=== PATIENT | female | born 1935 | race Caucasian/White ===

== ENCOUNTER 2017-02-03 15:51 | Observation (INO) ==
[2017-02-03 16:06] LABS: Basophils # 0.1 K/mcL (0.0-0.2); Basophils % 1.7 %; Eosinophils # 0.2 K/mcL (0.0-0.6); Eosinophils % 2.9 %; Hematocrit 44.7 % (35.3-44.9); Immature Granulocytes % 0.2 % (0-4); Lymphocytes # 1.4 K/mcL (0.6-4.6); Lymphocytes % 27.9 %; Mean Corpuscular HGB Conc 31.3 g/dL (31.6-35.5); Mean Corpuscular Hemoglobin 29.4 pg (28.0-33.3); Mean Corpuscular Volume 93.9 fL (83.0-100.0); Monocytes # 0.5 K/mcL (0.0-1.3); Monocytes % 10.1 %; Platelet Count 235 K/mcL (140-400); Red Blood Count 4.76 M/mcL (3.82-4.97); Red Cell Distribution Width 14.2 % (11.5-14.5); Segmented Neutrophils % 57.2 %
[2017-02-03 16:13] LABS: Prothrombin Time 11.2 Seconds (9.4-12.1)
[2017-02-03 16:16] LABS: Activated Partial Thrombo Time 30.9 Seconds (26.0-36.0)
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
[2017-02-03 16:19] LABS: Calcium 9.4 mg/dL (8.6-10.8); Potassium 4.7 mEq/L (3.5-4.5)
[2017-02-03] MEDS ORDERED: *HR* Labetalol 20 MG/4 ML SYRINGE IVP ONE (16:54)
[2017-02-03] MEDS ORDERED: Aspirin 81 MG TAB.CHEW PO ONE (17:26)
[2017-02-03] MEDS ORDERED: Ondansetron 4 MG/2 ML VIAL IVP PRN (20:02)
[2017-02-03] MEDS ORDERED: Naloxone 0.4 MG/ML INJ IVP PRN (20:02)
[2017-02-03] MEDS ORDERED: *HR* Metoprolol 5 MG/5 ML VIAL IVP PRN (20:10)
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
[2017-02-03] MEDS: 0.9 % Sodium Chloride 1,000 ML IVC SCH (23:34)
[2017-02-04] MEDS: *HR* Morphine 2 MG/ML SYRINGE IVP PRN (02:50)
[2017-02-04 04:43] LABS: Basophils # 0.1 K/mcL (0.0-0.2); Basophils % 1.5 %; Eosinophils # 0.2 K/mcL (0.0-0.6); Eosinophils % 4.4 %; Hematocrit 38.8 % (35.3-44.9); Immature Granulocytes % 0.2 % (0-4); Lymphocytes # 1.5 K/mcL (0.6-4.6); Lymphocytes % 31.7 %; Mean Corpuscular HGB Conc 31.2 g/dL (31.6-35.5); Mean Corpuscular Hemoglobin 29.4 pg (28.0-33.3); Mean Corpuscular Volume 94.2 fL (83.0-100.0); Mean Platelet Volume 10.3 fL (9.4-12.4); Monocytes # 0.5 K/mcL (0.0-1.3); Monocytes % 9.7 %; Neutrophils # 2.5 K/mcL (1.6-8.9); Platelet Count 195 K/mcL (140-400); Red Blood Count 4.12 M/mcL (3.82-4.97); Red Cell Distribution Width 14.2 % (11.5-14.5); Segmented Neutrophils % 52.5 %
[2017-02-04 04:46] LABS: Hemoglobin 12.1 g/dL (11.5-15.4)
[2017-02-04 05:00] LABS: Calcium 8.9 mg/dL (8.6-10.8); Chol/HDL Ratio 3.9 (0-4.9); Magnesium 1.9 mg/dL (1.6-2.6); Potassium 4.1 mEq/L (3.5-4.5)
[2017-02-04] MEDS: *HR* Heparin 5,000 UNIT/ML VIAL SQ SCH ×2 (05:24→20:37)
--- NOTE | 2017-02-04 09:42 | Neurosurgical History&Physical ---
Date of Encounter: 02/04/17 Time of Encounter: 09:37 Assessment and Plan (1) Cerebrovascular accident Current visit: Yes Status: Acute Likely secondary to multiple medical issues, including edical incompliance - patient was on Xarelto, but has not been taking it. Pt has Afib, and is at higher risk for strokes in the future if she does not take Xarelto. Pt also has hypercholesterolomia and needs to be on statin. Cholesterol levels are high. Her carotid imaging shows plaques in ICA bilaterally. although EF is normal, she has Afib. Qualifiers: CVA mechanism: unspecified Qualified Code(s): I63.9 - Cerebral infarction, unspecified (2) Dysarthria Current visit: Yes Status: Acute resolved (3) Confusion Current visit: Yes Status: Acute resolved (4) Dysphagia Current visit: Yes Status: Acute seems to have resolved, but need Speech evaluation. Qualifiers: Qualified Code(s): R13.10 - Dysphagia, unspecified History of Present Illness Chief complaint: stroke versus TIA HPI: Ms. Ireland is a 81 year old female with prior history of TIAs, Atrial fibrillation, who had sudden onset speech difficulties and right-sided weakness when she was driving. The daughter who was with her, called 911 and was taken to the [place] [facility]. Telestroke with [facility] was performed - and tPA was advised. Pt and family did not want the tPA and was admited to the floor for observation. Patient today tells us that she has not been taking her home medications - she was on Xarelto for Afib. She is tired of taking medications at home, she says. She knew that she probably had a stroke. She states that she was confused, but not out of breath, and that she was weak on the right side. No bowel/bladder issues at that time. Today, she states that she is back to her own self and wants to know when he can go home. She is NPO for now, but she is asking when she can eat. NIHSS 2. Past Med Surg Social Fam HX - Past Medical History Medical history: arthritis, atrial fibrillation, GERD, hypertension, peripheral artery disease, TIA Psychiatric history: depression - Past Surgical History Surgical History: vascular surgery - Social History Smoking Status: Current every day smoker Smokeless Tobacco Status: No Alcohol use: none Drug use: none Current living situation: With Family Activity Level: Independent ambulation Recent Out of Country Travel Within the Last 8 Weeks: No Exposure or Possible Exposure to Illness During Travel: No - Family History Daughter Hx Family Medical Disorders: Yes (PVD/PAD) Medications and Allergies Atorvastatin Calcium [Lipitor] 80 mg PO HS 04/18/16 [History] Lisinopril [Zestril] 40 mg PO DAILY 04/18/16 [History] Metoprolol XL (24 HR) Succ [Toprol XL] 50 mg PO DAILY 04/18/16 [History] Omeprazole [PriLOSEC] 20 mg PO DAILY 04/18/16 [History] Oxycodone HCl/Acetaminophen [Percocet 5-325 mg Tablet] 1 tab PO Q8H PRN [History] Rivaroxaban [Xarelto] 20 mg PO DAILY 04/18/16 [History] Ergocalciferol (VITAMIN D2) [Vitamin D2] 50,000 unit PO QWEEK 02/01/17 [History] Ferrous Sulfate [Ferrous Sulfate] 325 mg PO BID 02/03/17 [History] Gabapentin [Neurontin] 300 mg PO TID 02/03/17 [History] Allergies Erythromycin Base Allergy (Verified 02/03/17 15:53) Rash All Systems: A 10-system review of systems was performed and is negative for pertinent findings except as documented above in the HPI. - Neurological Neurological ROS: abnormal speech (resolved), focal weakness (resolved) Physical Examination - Vital Signs Vital Signs: Initial Vital Signs Temp Pulse Resp BP Pulse Ox 0 F L 102 0 0/0 97 02/03/17 15:54 02/03/17 15:54 02/03/17 15:54 02/03/17 15:54 02/03/17 15:54 Vital Signs - 24 hr 02/03/17 15:54 02/03/17 16:11 02/03/17 16:26 Temperature 0 F L Pulse Rate 102 82 78 Respiratory Rate 16 14 98 Blood Pressure 214/103 185/117 190/101 O2 Sat by Pulse Oximetry 97 99 02/03/17 16:47 02/03/17 16:57 02/03/17 17:02 Temperature Pulse Rate 80 81 98 Respiratory Rate 14 14 14 Blood Pressure 187/139 173/139 195/114 O2 Sat by Pulse Oximetry 99 97 96 02/03/17 17:10 02/03/17 17:16 02/03/17 17:26 Temperature Pulse Rate 76 75 71 Respiratory Rate 14 16 16 Blood Pressure 190/77 144/117 163/128 O2 Sat by Pulse Oximetry 97 97 98 02/03/17 17:35 02/03/17 17:56 02/03/17 18:11 Temperature Pulse Rate 74 75 76 Respiratory Rate 14 14 14 Blood Pressure 171/109 181/95 165/96 O2 Sat by Pulse Oximetry 97 98 02/03/17 18:35 02/03/17 20:10 02/03/17 21:00 Temperature 97.8 F Pulse Rate 83 Respiratory Rate 16 16 Blood Pressure 155/99 173/110 O2 Sat by Pulse Oximetry 95 95 02/04/17 00:05 02/04/17 04:52 02/04/17 04:58 Temperature 98.3 F 97.7 F Pulse Rate 85 80 63 Respiratory Rate 18 18 12 Blood Pressure 182/104 188/98 188/98 O2 Sat by Pulse Oximetry 97 98 02/04/17 07:19 Temperature 97.7 F Pulse Rate 80 Respiratory Rate 14 Blood Pressure 172/92 O2 Sat by Pulse Oximetry 97 - Constitutional General appearance: comfortable - Neurologic Sensorimotor examination: hemiparesis (mild right hemiparesis) Detailed sensory examination: other (decreased distally for light touch and vibration) Reflexes: Biceps: 1+ (bilaterally), Triceps: 1+ (bilaterally), Brachioradialis: 1+ (bilaterally), Patella: 1+ (bilaterally), Achilles: 2+ (asymmetrically on the right, up going toe on the right.) Mental Status Examination: awake, alert, oriented to person, oriented to place, oriented to time, follows commands appropriately, answers questions appropriately, no agnosia, no aphasia, no aproxia, lucid Cranial nerve examination: PERRL, EOMI, visual baez intact, corneal reflexes brisk symmetrically, sensory to face intact, mastication intact, no facial asymmetry is present, no dysarthria, hearing is intact symmetrically, soft palate elevates bilaterally upon phonation, gag reflex intact, flexes SCM and trapezius muscles symmetrically with full power, tongue protrudes midline, no atrophy or facial fasiculations present Cerebellar examination: no dysmetria, performs finger to nose and heel to arias symmetrically without ataxia (but mildly clumsy on the right), no difficulty with rapid alternating movements Results - Laboratory Findings CBC and BMP: 02/04/17 04:17 02/04/17 04:17 Abnormal lab findings: Abnormal lab results MCHC 31.2 g/dL (31.6-35.5) L 02/04/17 04:17 Chloride 111 mEq/L (98-109) H 02/04/17 04:17 BUN 30 mg/dL (7-20) H 02/04/17 04:17 Creatinine 1.37 mg/dL (0.57-1.11) H 02/04/17 04:17 Est GFR ( Amer) 45 (> 60) L 02/04/17 04:17 Est GFR (Non-Af Amer) 37 (> 60) L 02/04/17 04:17 POC Glucose 99 (58-89) H 02/03/17 15:55 Cholesterol 206 mg/dL (< 200) H 02/04/17 04:17 LDL Cholesterol, Calc 137 mg/dL (0-99) H 02/04/17 04:17 - Diagnostic Findings Additional findings: Head CT 02/03/17 15:56 IMPRESSION: No acute intracranial abnormality. MRI with diffusion-weighted imaging is more sensitive for the evaluation of acute/hyperacute stroke. Chronic white matter microangiopathic ischemic changes and age-related cerebral atrophy. Critical results were called by Dr. Juliocesar Seth MD to Ildefonos Hernandez on 02/03/2017 at 16:12. D/ / Juliocesar Seth MD / Juliocesar Seth MD Interpreting Provider: Juliocesar Seth MD Brain MRI 02/03/17 20:08 IMPRESSION: 1. Small volume acute ischemic infarct in the posterior left frontal periventricular white matter. 2. No intracranial hemorrhage or mass effect. 3. Diffuse parenchymal volume loss with moderate chronic white matter microvascular ischemic changes. 4. Findings of right paranasal sinusitis in a pattern suggesting ostiomeatal unit obstruction. D/ / Juice Eaton MD / Juice Eaton MD Interpreting Provider: Juice Eaton MD
--- NOTE | 2017-02-04 12:42 | Carotid Imaging Report ---
Carotid Duplex Patient Name:Alba Ireland Order Number:[id number] Procedure Date:02/04/2017 Date:1935ge:81 yrs Gender:Female Rt.BP:172 / 92 mmHgHeart Rate: Location:[facility] Room #: 2ne30 Cinder Pit Worker:yLndon Granda, RDIVANNA Referring MD:Jin Chester MD Reading MD:Bolivar Smith MD , FACS Primary Indications:Occlusion and stenosis of carotid artery without mention of cerebral infarction Risk Factors Yes/No Hypertension Yes Smoking Current Yes Impressions: Findings: Bilateral carotid system have nonstenotic plaque. Findings Carotid Duplex: Right: The right proximal common carotid artery has a PSV of 61 cm/s and a EDV of 11 cm/s. There is irregular heterogeneous plaque. The right mid common carotid artery has a PSV of 62 cm/s and a EDV of 23 cm/s. There is irregular heterogeneous plaque. The right distal common carotid artery has a PSV of 52 cm/s and a EDV of 14 cm/s. There is irregular heterogeneous plaque. The right bifurcation has a PSV of 57 cm/s and a EDV of 20 cm/s. There is irregular heterogeneous plaque. The right proximal internal carotid artery has a PSV of 84 cm/s and a EDV of 21 cm/s. There is irregular heterogeneous plaque. The right mid internal carotid artery has a PSV of 80 cm/s and a EDV of 22 cm/s. There is irregular heterogeneous plaque. The right distal internal carotid artery has a PSV of 85 cm/s and a EDV of 24 cm/s. There is irregular heterogeneous plaque. The right eca has a PSV of 205 cm/s and a EDV of 25 cm/s. The right vertebral artery has a PSV of 52 cm/s and a EDV of 14 cm/s. There is irregular heterogeneous plaque. Left: The left proximal common carotid artery has a PSV of 66 cm/s and a EDV of 20 cm/s. There is irregular heterogeneous plaque. The left mid common carotid artery has a PSV of 75 cm/s and a EDV of 22 cm/s. There is irregular heterogeneous plaque. The left distal common carotid artery has a PSV of 82 cm/s and a EDV of 28 cm/s. There is irregular heterogeneous plaque. The left bifurcation has a PSV of 78 cm/s and a EDV of 24 cm/s. There is irregular heterogeneous plaque. The left proximal internal carotid artery has a PSV of 85 cm/s and a EDV of 23 cm/s. There is irregular heterogeneous plaque. The left mid internal carotid artery has a PSV of 92 cm/s and a EDV of 31 cm/s. There is irregular heterogeneous plaque. The left distal internal carotid artery has a PSV of 91 cm/s and a EDV of 24 cm/s. There is irregular heterogeneous plaque. The left eca has turbulent flow with plaque with a PSV of 341 cm/s and a EDV of 46 cm/s. The left vertebral artery was not well visualized. Prior Study: No prior study available for comparison. Carotid Results Right PSV EDV Assessment Proximal CCA 61 11 Non Stenotic Plaque Mid CCA 62 23 Non Stenotic Plaque Distal CCA 52 14 Non Stenotic Plaque Bifurcation 57 20 Non Stenotic Plaque Proximal ICA 84 21 Non Stenotic Plaque Mid ICA 80 22 Non Stenotic Plaque Distal ICA 85 24 Non Stenotic Plaque ECA 205 25 Normal Vertebral Artery 52 14 Non Stenotic Plaque Left PSV EDV Assessment Proximal CCA 66 20 Non Stenotic Plaque Mid CCA 75 22 Non Stenotic Plaque Distal CCA 82 28 Non Stenotic Plaque Bifurcation 78 24 Non Stenotic Plaque Proximal ICA 85 23 Non Stenotic Plaque Mid ICA 92 31 Non Stenotic Plaque Distal ICA 91 24 Non Stenotic Plaque ECA 341 46 Turbulant Flow Ratio's Right ICA/CCA Ratio: 1.37 ICA/CCA Values: 85/62 Left ICA/CCA Ratio: 1.23 ICA/CCA Values: 92/75 Updated by Bolivar Smith MD, FACS on 02/04/2017 12:37:00 PM Bolivar Smith MD electronically signed on 02/04/2017 12:37:26 PM with status of Final
--- NOTE | 2017-02-04 13:08 | Internal Med Progress Note ---
Date of Encounter: 02/04/17 Time of Encounter: 13:05 - Assessment and plan (1) Cerebrovascular accident Current Visit: Yes Status: Acute Assessment and plan: the dysarthria has resolved, she still has some weakness of rt. arm MRI shows small volume infarct possible 2/2 atrial fib non compliant with meds and not taking xarelto. neurology recoomendations appreciated. bedside PT/OT. carotid doppler shows b/l plaques with no stenosis. follow ECHO results. continue to hold BP meds for permissive HTN, prn if SBP>210 continue asa, statin and AC with xarelto. Qualifiers: CVA mechanism: unspecified Qualified Code(s): I63.9 - Cerebral infarction, unspecified (2) Hypertension Current Visit: Yes Status: Chronic Assessment and plan: will allow permissive HTN for now. Qualifiers: Hypertension type: essential hypertension Qualified Code(s): I10 - Essential (primary) hypertension (3) Atrial fibrillation Current Visit: Yes Status: Chronic Assessment and plan: rate controlled now. will restart on AC before dc. Qualifiers: Atrial fibrillation type: chronic Qualified Code(s): I48.2 - Chronic atrial fibrillation - Time Spent With Patient 25 - 35 minutes - Subjective Interval history: seen at the bedside, presented with acute CVA with right sided weakness, candidate for TPA however seh refused. still has some weakness of rt. arm, however symptoms have improved. no dysarthria, no dysphagia, MRI shows a small infarct, neurology on board. - Constitutional Vitals: Temp Pulse Resp BP Pulse Ox 97.6 F 104 18 126/80 18 02/04/17 11:29 02/04/17 11:29 02/04/17 11:29 02/04/17 11:29 02/04/17 11:29 General appearance: Present: cooperative, A&O X 3, pleasant, no acute distress Exam: neck- supple chest- b/l clear , no added sounds CVS-s1 and s2, no mr/g/ abd-soft, non tender, bs are present ext- no edema neuro- alert and awake, no dysphagia or dysarthria, weakness right arm 3/5. Internal Medicine: Result - Labs CBC & Chem 7: 02/04/17 04:17 02/04/17 04:17 Labs: Short CBC 02/04/17 Range/Units 04:17 WBC 4.8 (4.3-11.1) K/mcL Hgb 12.1 D (11.5-15.4) g/dL Hct 38.8 (35.3-44.9) % Plt Count 195 (140-400) K/mcL Neutrophils # 2.5 (1.6-8.9) K/mcL BMP 02/04/17 04:17 Sodium 142 Potassium 4.1 Chloride 111 H Carbon Dioxide 21 BUN 30 H Creatinine 1.37 H Glucose 75 Calcium 8.9 - ABG Interpretation ABG results: PT/INR, D-dimer PT 11.2 Seconds (9.4-12.1) 02/03/17 15:56 - Impressions Impressions Brain MRI 02/03/17 20:08 IMPRESSION: 1. Small volume acute ischemic infarct in the posterior left frontal periventricular white matter. 2. No intracranial hemorrhage or mass effect. 3. Diffuse parenchymal volume loss with moderate chronic white matter microvascular ischemic changes. 4. Findings of right paranasal sinusitis in a pattern suggesting ostiomeatal unit obstruction. D/ / Juice Eaton MD / Juice Eaton MD Interpreting Provider: Juice Eaton MD Consult Discharge Plan - Plan Referrals: Patsy Caldera MD [Primary Care Provider] -
[2017-02-04] MEDS: 0.9 % Sodium Chloride 1,000 ML IVC SCH (13:30)
[2017-02-04] MEDS: Gabapentin 300 MG CAPSULE PO SCH ×2 (16:10→20:36)
--- NOTE | 2017-02-04 17:39 | ECHO - Doppler Report ---
Echo with Saline Contrast Name: Alba Ireland Date of Study: 02/04/2017 Date: 1935 Ht: 60.0 in Medical Record#: [id number] Age: 81 Wt: 99.0 lb Gender: Female BSA: 1.38 Order #: [id number] Location: [facility] Room #: 2ne30 Reading Physician: Dashawn Espinosa DO, FACEVAN Rodriguez Helicopter Crew Chief: Lyndon Granda RDCS Ordering Physician: Jin Chester MD Primary Physician: Indications: Cerebrovascular Accident Impressions: LVEF 60-65%. Normal LV chamber size, wall thickness and function. Indeterminate diastolic function. Normal right ventricular structure and function. No evidence of PFO with agitated saline contrast. Mild mitral regurgitation. Mild tricuspid regurgitation. Severe pulmonary hypertension. Estimated RVSP is 67 mmHg. Left Ventricular Wall Motion: Rest Echo Findings All wall segments showed normal motion. Findings: Study Quality * Technically adequate exam. ECG Findings * Atrial fibrillation. Left Ventricle * LVEF 60-65%. * Normal LV chamber size, wall thickness and function. * Indeterminate diastolic function. Right Ventricle * Normal right ventricular structure and function. Left Atrium * Mild to moderately dilated left atrium. Right Atrium * Mild to moderately dilated right atrium. Interatrial Septum * No evidence of PFO with agitated saline contrast. Aortic Valve * Trileaflet aortic valve. * Mildly sclerotic aortic valve leaflets. * No aortic regurgitation. * No aortic stenosis. Mitral Valve * Normal mitral valve structure. * Mild mitral regurgitation. * No mitral stenosis. Tricuspid Valve * Normal tricuspid valve structure. * Mild tricuspid regurgitation. * Severe pulmonary hypertension. * Estimated RVSP is 67 mmHg. * Estimated RA pressure is 5 mmHg. Pulmonic Valve * Normal pulmonic valve structure. * Mild pulmonic regurgitation. Aorta * Normally sized aortic root. Pericardium * There is a trivial pericardial effusion present. IVC * Normal IVC dimensions and inspiratory collapse. Pulmonary Artery * Normal visualized portions of the main pulmonary artery. History Hypertension Hypercholesteremia Family History of CAD History of CAD/PTCA 08/12/14 a Previous Echo was performed. Contrast: Agitated saline 2 ml. Measurements: BP: 172/ 92 2D Normal Values RVIDd: 2.90 cm <2.7 cm IVSd: 1.00 cm 0.6 - 1.0 cm LVIDd: 3.50 cm 3.7 - 5.6 cm LVPWd: 1.10 cm 0.6 - 1.1 cm LVIDs: 2.40 cm 1.5 - 3.6 cm AO: 2.40 cm < 4.0 cm LA: 3.20 cm 2.0 - 4.0cm %FS: 31.40 cm >25 % LA volume: 54 Mitral Valve Peak E:.92 m/sec Peak E' Lat Andres:7.51 cm/s Peak E' Med Andres:5.29 cm/s E/E' Lat Ratio:12.3 E/E' Med Ratio:17.4 Tricuspid Valve TV Regurg Peak Grad: 61.00mmHg TV Regurg Peak Andres: 3.92m/sec Updated by Dashawn Espinosa DO, MIGUEL, EVAN, JORGE LUIS on 02/04/2017 5:34:01 PM electronically signed on 02/04/2017 5:35:05 PM with status of Final Wall Motion Dow: 1=Normal, 2=Hypokinesis, 3=Akinesis, 4=Dyskinesis, 5=Aneurysmal, 6=Hyperkinetic, X=Not Visualized (Blank)=Missing
[2017-02-05] MEDS: 0.9 % Sodium Chloride 1,000 ML IVC SCH ×2 (03:12→22:24)
[2017-02-05] MEDS: Gabapentin 300 MG CAPSULE PO SCH ×3 (09:55→20:53)
[2017-02-05] MEDS: *HR* Heparin 5,000 UNIT/ML VIAL SQ SCH ×2 (09:55→15:54)
--- NOTE | 2017-02-05 10:43 | Internal Med Progress Note ---
Date of Encounter: 02/05/17 Time of Encounter: 10:41 - Assessment and plan (1) Cerebrovascular accident Current Visit: Yes Status: Acute Assessment and plan: the dysarthria has resolved, she still has some weakness of rt. arm MRI shows small volume infarct possible 2/2 atrial fib non compliant with meds and not taking xarelto. neurology recoomendations appreciated. bedside PT/OT. carotid doppler shows b/l plaques with no stenosis. Echo results reviewed, no evidence of PFO, nomral LVEF. continue to hold BP meds for permissive HTN, prn if SBP>210 continue asa, statin and AC with xarelto. Qualifiers: CVA mechanism: unspecified Qualified Code(s): I63.9 - Cerebral infarction, unspecified (2) Hypertension Current Visit: Yes Status: Chronic Assessment and plan: will allow permissive HTN for now. Qualifiers: Hypertension type: essential hypertension Qualified Code(s): I10 - Essential (primary) hypertension (3) Atrial fibrillation Current Visit: Yes Status: Chronic Assessment and plan: rate controlled now. will restart on AC before dc. Qualifiers: Atrial fibrillation type: chronic Qualified Code(s): I48.2 - Chronic atrial fibrillation - Subjective Interval history: seen at the bedside, presented with acute CVA with right sided weakness, candidate for TPA however seh refused. weakness of rt. arm improving, speech has improved no dysarthria, no dysphagia, MRI shows a small infarct, neurology on board. will need inpt. reahb possible at dc. - Constitutional Vitals: Temp Pulse Resp BP Pulse Ox 97.7 F 85 18 188/90 95 02/05/17 07:10 02/05/17 07:10 02/05/17 07:10 02/05/17 07:10 02/05/17 07:10 General appearance: Present: cooperative, A&O X 3, pleasant, no acute distress Exam: neck- supple chest- b/l clear , no added sounds CVS-s1 and s2, no mr/g/ abd-soft, non tender, bs are present ext- no edema neuro- alert and awake, no dysphagia or dysarthria, weakness right arm 3/5. Internal Medicine: Result - Labs CBC & Chem 7: 02/04/17 04:17 02/04/17 04:17 - ABG Interpretation ABG results: PT/INR, D-dimer PT 11.2 Seconds (9.4-12.1) 02/03/17 15:56 Consult Discharge Plan - Plan Referrals: Patsy Caldera MD [Primary Care Provider] -
[2017-02-05 10:59] LABS: Basophils # 0.1 K/mcL (0.0-0.2); Basophils % 1.1 %; Eosinophils # 0.2 K/mcL (0.0-0.6); Eosinophils % 3.8 %; Hematocrit 39.3 % (35.3-44.9); Hemoglobin 12.3 g/dL (11.5-15.4); Immature Granulocytes % 0.4 % (0-4); Immature Platelets 4.8 % (1.1-6.1); Lymphocytes # 1.2 K/mcL (0.6-4.6); Mean Corpuscular HGB Conc 31.3 g/dL (31.6-35.5); Mean Corpuscular Hemoglobin 29.6 pg (28.0-33.3); Mean Corpuscular Volume 94.5 fL (83.0-100.0); Mean Platelet Volume 10.3 fL (9.4-12.4); Monocytes # 0.5 K/mcL (0.0-1.3); Monocytes % 10.3 %; Neutrophils # 2.6 K/mcL (1.6-8.9); Platelet Count 199 K/mcL (140-400); Red Blood Count 4.16 M/mcL (3.82-4.97); Red Cell Distribution Width 14.3 % (11.5-14.5); Segmented Neutrophils % 57.4 %
[2017-02-05 11:12] LABS: Calcium 8.8 mg/dL (8.6-10.8); Potassium 4.3 mEq/L (3.5-4.5)
--- NOTE | 2017-02-05 12:29 | Electrocardiograph Report ---
[address] [address] Test Date: 2017-02-03 Pat Name: Alba Ireland Department: 102 Room: [facility] Gender: F [employer]: : 1935 Requested By: Jin Chester Order Number: [id number] Reading MD: Joel Goems Measurements Intervals [facility] Rate: 84 P: HI: 0 QRS: -16 QRSD: 70 T: 19 QT: 368 QTc: 408 Interpretive Statements ATRIAL FIBRILLATION Electronically Signed On 02-05-2017 12:28:13 EDT by Joel Gomes
[2017-02-05] MEDS: *HR* Morphine 2 MG/ML SYRINGE IVP PRN (15:54)
[2017-02-05] MEDS ORDERED: *HR* Metoprolol 5 MG/5 ML VIAL IVP PRN (20:20)
[2017-02-06] MEDS: *HR* Heparin 5,000 UNIT/ML VIAL SQ SCH ×2 (05:32→15:10)
[2017-02-06] MEDS: Gabapentin 300 MG CAPSULE PO SCH ×3 (09:42→21:21)
--- NOTE | 2017-02-06 14:11 | Internal Med Progress Note ---
Date of Encounter: 02/06/17 Time of Encounter: 14:09 - Assessment and plan (1) Cerebrovascular accident Current Visit: Yes Status: Acute Assessment and plan: the dysarthria has resolved, she still has some weakness of rt. arm MRI shows small volume infarct possible 2/2 atrial fib non compliant with meds and not taking xarelto. neurology recoomendations appreciated. bedside PT/OT. carotid doppler shows b/l plaques with no stenosis. Echo results reviewed, no evidence of PFO, nomral LVEF. will restrat her BP meds. continue asa, statin and AC with xarelto. await soical work for placement to inpatient rehab Qualifiers: CVA mechanism: unspecified Qualified Code(s): I63.9 - Cerebral infarction, unspecified (2) Hypertension Current Visit: Yes Status: Chronic Assessment and plan: will gradually start anti htn meds. Qualifiers: Hypertension type: essential hypertension Qualified Code(s): I10 - Essential (primary) hypertension (3) Atrial fibrillation Current Visit: Yes Status: Chronic Assessment and plan: rate controlled now. will restart on AC before dc. Qualifiers: Atrial fibrillation type: chronic Qualified Code(s): I48.2 - Chronic atrial fibrillation - Subjective Interval history: seen at the bedside, presented with acute CVA with right sided weakness, candidate for TPA however se refused. weakness of rt. arm improving, speech has improved no dysarthria, no dysphagia, MRI shows a small infarct, neurology on board. will need inpt. reahb possible at dc, awaiting social work for placement. - Constitutional Vitals: Temp Pulse Resp BP Pulse Ox 97.9 F 62 15 173/103 96 02/06/17 11:00 02/06/17 11:00 02/06/17 11:00 02/06/17 11:00 02/06/17 11:00 General appearance: Present: cooperative, A&O X 3, pleasant, no acute distress Exam: neck- supple chest- b/l clear , no added sounds CVS-s1 and s2, no mr/g/ abd-soft, non tender, bs are present ext- no edema neuro- alert and awake, no dysphagia or dysarthria, weakness right arm 3/5. Internal Medicine: Result - Labs CBC & Chem 7: 02/05/17 10:49 02/05/17 10:49 - ABG Interpretation ABG results: PT/INR, D-dimer PT 11.2 Seconds (9.4-12.1) 02/03/17 15:56 Consult Discharge Plan - Plan Referrals: Patsy Caldera MD [Primary Care Provider] - 02/13/17 1:30 pm
[2017-02-06] MEDS: Metoprolol XL (24 HR) Succ 50 MG TAB.ER.24H PO SCH (15:11)
[2017-02-07 03:52] VITALS: BP 180/98
[2017-02-07] MEDS: *HR* Heparin 5,000 UNIT/ML VIAL SQ SCH (06:40)
[2017-02-07] MEDS: Metoprolol XL (24 HR) Succ 50 MG TAB.ER.24H PO SCH (08:35)
[2017-02-07] MEDS: Gabapentin 300 MG CAPSULE PO SCH (08:35)
--- NOTE | 2017-02-07 12:31 | Discharge Summary ---
Date of Encounter: 02/07/17 Time of Encounter: 12:28 - Discharge Diagnosis (1) Cerebrovascular accident Priority: Primary Status: Acute Qualifiers: CVA mechanism: unspecified Qualified Code(s): I63.9 - Cerebral infarction, unspecified (2) Hypertension Priority: Secondary Status: Chronic Qualifiers: Hypertension type: essential hypertension Qualified Code(s): I10 - Essential (primary) hypertension (3) Atrial fibrillation Priority: Secondary Status: Chronic Qualifiers: Atrial fibrillation type: chronic Qualified Code(s): I48.2 - Chronic atrial fibrillation - Discharge Medications Prescriptions: Aspirin 81 mg PO DAILY #30 tab.chew Home Medications: Atorvastatin Calcium [Lipitor] 80 mg PO HS 04/18/16 [History] Lisinopril [Zestril] 40 mg PO DAILY 04/18/16 [History] Metoprolol XL (24 HR) Succ [Toprol Xl] 50 mg PO DAILY 04/18/16 [History] Omeprazole [PriLOSEC] 20 mg PO DAILY 04/18/16 [History] Oxycodone HCl/Acetaminophen [Percocet 5-325 mg Tablet] 1 tab PO Q8H PRN [History] Rivaroxaban [Xarelto] 20 mg PO DAILY 04/18/16 [History] Ergocalciferol (VITAMIN D2) [Vitamin D2] 50,000 unit PO QWEEK 02/01/17 [History] Ferrous Sulfate 325 mg PO BID 02/03/17 [History] Gabapentin [Neurontin] 300 mg PO TID 02/03/17 [History] Aspirin 81 mg PO DAILY #30 tab.chew 02/07/17 [Rx] Allergies/Adverse Reactions: Allergies Erythromycin Base Allergy (Verified 02/03/17 15:53) Rash Date of admission: 02/03/17 18:14 [facility]ults: 02/03/17 20:02 Consult to Neurology [CONS] Routine Consulting Provider: [facility] Reason for Consult: TIA/stroke affecting right side Time Notified: 20:05 Call Completed: Yes Consult to Occupational Therapy [CONS] Routine Comment: Evaluate, develop and implement POC Reason for Consult: TIA/stroke Consult to Physical Therapy [CONS] Routine Comment: Evaluate, develop and implement POC Reason for Consult: TIA/stroke Consult to Speech Therapy [CONS] Routine Comment: Evaluate, develop and implement POC Reason for Consult: TIA/stroke; right sided facial droop; dysphasia Call Completed: No 02/05/17 18:17 Consult to [facility] [employer] Teacher Assistant [CONS] Routine Reason for SW Consult: PT/OT recommends in-pt rehab Discharging clinician: Brendon German Anticipated date of discharge: 02/07/17 - Patient Status Disposition: Transfer Inpatient Rehab Fac Condition: Fair Functional capacity at discharge: uses cane/walker Overall status at discharge: patient is back to baseline - Discharge Instructions Instructions: Aspirin (By mouth), Atrial Fibrillation (DC), Ischemic Stroke (DC ), Ischemic Stroke (GEN), Chronic Hypertension (DC), Fall Prevention (DC) Follow Up With: Patsy Caldera MD [Primary Care Provider] - 02/13/17 1:30 pm - Diet and Activity Activity: as per physical therapy Diet: advance to your usual diet Interval History: Ms. Ireland is a 81 year old female with prior history of TIAs, Atrial fibrillation, who had sudden onset speech difficulties and right-sided weakness when she was driving. The daughter who was with her, called 911 and was taken to the [facility]. Telestroke with [facility] was performed - and tPA was advised. Pt and family did not want the tPA and was admited to the floor for observation. MRI shows small volume infarct. Neurology was consulted. Likely secondary to multiple medical issues, including medical noncompliance - patient was on Xarelto, but has not been taking it. Pt has Afib, and is at higher risk for strokes in the future if she does not take Xarelto. Pt also has hypercholesterolomia and needs to be on statin. Cholesterol levels are high. Her carotid imaging shows plaques in ICA bilaterally. ECHO showed normal LVEF and no evidence of PFO. she was advised to take her home meds, the weakness in her right arm improved, bedside PT/OT was consulted adn recommneded inpatient rehabilitation. Patient is being discharged in stable condition to inpatient rehabilitation today. Hospital course: Ms. Ireland is a 81 year old female - Time Spent with Patient Total time spent providing and/or coordinating discharge services: - Constitutional Vitals: Temp Pulse Resp BP Pulse Ox 97.5 F L 65 16 180/98 96 02/07/17 08:34 02/07/17 08:34 02/07/17 08:34 02/07/17 03:49 02/07/17 09:00 General appearance: Present: cooperative, A&O X 3, pleasant, no acute distress Exam: neck- supple chest- b/l clear , no added sounds CVS-s1 and s2, no mr/g/ abd-soft, non tender, bs are present ext- no edema neuro- alert and awake, no dysphagia or dysarthria, weakness right arm 3/5.
--- NOTE | 2017-02-07 12:32 | Physician Discharge Referral ---
ExtendedCare Referral Info Transfer To: [facility] Provider in Charge: kelechi rahman Institutional Level of Care: Intermediate - MR - Diagnosis (1) Cerebrovascular accident Status: Acute (2) Hypertension Status: Chronic (3) Atrial fibrillation Status: Chronic - Transfer Medications Prescriptions: Aspirin 81 mg PO DAILY #30 tab.chew Home Medications: Atorvastatin Calcium [Lipitor] 80 mg PO HS 04/18/16 [History] Lisinopril [Zestril] 40 mg PO DAILY 04/18/16 [History] Metoprolol XL (24 HR) Succ [Toprol Xl] 50 mg PO DAILY 04/18/16 [History] Omeprazole [PriLOSEC] 20 mg PO DAILY 04/18/16 [History] Oxycodone HCl/Acetaminophen [Percocet 5-325 mg Tablet] 1 tab PO Q8H PRN [History] Rivaroxaban [Xarelto] 20 mg PO DAILY 04/18/16 [History] Ergocalciferol (VITAMIN D2) [Vitamin D2] 50,000 unit PO QWEEK 02/01/17 [History] Ferrous Sulfate 325 mg PO BID 02/03/17 [History] Gabapentin [Neurontin] 300 mg PO TID 02/03/17 [History] Aspirin 81 mg PO DAILY #30 tab.chew 02/07/17 [Rx] Allergies/Adverse Reactions: Allergies Erythromycin Base Allergy (Verified 02/03/17 15:53) Rash - Respiratory Orders Smoking Cessation: Smoking cessation has been advised. For more information, call the [place] Tobacco Quit Line at 0-650-IVKO-NOW. - Advance Directives Code Status: Full Code - Mobility Orders Chair, Ambulate - Rehabiliation Orders Rehab Potential: Fair Rehab Orders: Evaluation for Physical Therapy, Evaluation for Occupational Therapy, Evaluation for Speech Therapy - Diet Orders Regular CERTIFICATION: I certify that the transfer of the above named patient to an Extended Care Facility is necessary for the continuing treatment of the diagnosis listed. The above information is true and accurate reflection of patient's current condition. Confidential - Redisclosure prohibited without a patient's written consent.
== END 2017-02-07 16:24 ==
LOC: EMEROO 15:51 → 2NENU 15:51
PROVIDERS: ADMIT Internal Medicine; ATTEND Internal Medicine

== ENCOUNTER 2017-02-11 00:39 | Observation (INO) ==
[2017-02-11] MEDS ORDERED: Naloxone 0.4 MG/ML INJ IVP PRN (05:27)
[2017-02-11] MEDS ORDERED: Ondansetron 4 MG/2 ML VIAL IVP PRN (05:32)
[2017-02-11] MEDS ORDERED: Acetaminophen 325 MG TABLET PO PRN (05:32)
[2017-02-11] MEDS ORDERED: *HR* OxyCODONE/APAP 5/325 TABLET PO PRN (05:37)
[2017-02-11] MEDS ORDERED: Nitroglycerin 0.4 MG TAB.SUBL SL PRN (05:40)
[2017-02-11 06:18] LABS: Basophils # 0.1 K/mcL (0.0-0.2); Basophils % 1.1 %; Eosinophils # 0.2 K/mcL (0.0-0.6); Eosinophils % 4.8 %; Hematocrit 33.6 % (35.3-44.9); Immature Granulocytes % 0.2 % (0-4); Lymphocytes # 1.5 K/mcL (0.6-4.6); Lymphocytes % 32.2 %; Mean Corpuscular HGB Conc 30.7 g/dL (31.6-35.5); Mean Corpuscular Hemoglobin 29.9 pg (28.0-33.3); Mean Corpuscular Volume 97.4 fL (83.0-100.0); Mean Platelet Volume 10.6 fL (9.4-12.4); Monocytes # 0.6 K/mcL (0.0-1.3); Monocytes % 13.1 %; Neutrophils # 2.2 K/mcL (1.6-8.9); Platelet Count 178 K/mcL (140-400); Red Blood Count 3.45 M/mcL (3.82-4.97); Red Cell Distribution Width 15.3 % (11.5-14.5); Segmented Neutrophils % 48.6 %
[2017-02-11 06:20] LABS: Hemoglobin 10.3 g/dL (11.5-15.4)
[2017-02-11 06:34] LABS: Calcium 8.6 mg/dL (8.6-10.8); Chol/HDL Ratio 2.8 (0-4.9); Phosphorous 4.6 mg/dL (2.3-4.7); Potassium 5.1 mEq/L (3.5-4.5)
--- NOTE | 2017-02-11 07:08 | Internal Med History&Physical ---
Date of Encounter: 02/11/17 Time of Encounter: 05:15 Assessment and Plan (1) Chest pain Current visit: Yes Status: Acute Chest pain with significant smoking history, recent CVA, slight Troponin leak; need to consider ACS; Telemetry monitoring with serial Troponin trending. Continue ASA, beta-zainab, anticoagulation with Xarelto. Hold ACEI for now due to hyperkalemia. Echocardiogram from last week showed preserved EF, no PFO. Cardiology consult. Qualifiers: Chest pain type: unspecified Qualified Code(s): R07.9 - Chest pain, unspecified (2) Elevated troponin level Current visit: Yes Status: Acute (3) Tobacco abuse Current visit: Yes Status: Chronic Patient has atleast 35 pack year smoking history, willing to quit at this time; (4) COPD (chronic obstructive pulmonary disease) Current visit: Yes Status: Chronic not in acute exacerbation; PRN bronchodilators and supplemental O2; Qualifiers: COPD type: unspecified COPD Qualified Code(s): J44.9 - Chronic obstructive pulmonary disease, unspecified (5) CKD (chronic kidney disease) Current visit: Yes Status: Chronic Qualifiers: Chronic kidney disease stage: stage 3 (moderate) Qualified Code(s): N18.3 - Chronic kidney disease, stage 3 (moderate) (6) PVD (peripheral vascular disease) Current visit: Yes Status: Chronic (7) Cerebrovascular accident Current visit: Yes Status: Chronic Qualifiers: CVA mechanism: embolism Precerebral and cerebral artery: anterior cerebral artery Laterality of affected vessel: left Qualified Code(s): I63.422 - 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 Continue Xarelto; Qualifiers: Atrial fibrillation type: chronic Qualified Code(s): I48.2 - Chronic atrial fibrillation Internal Medicine - H&P: HPI Chief complaint: Chest pain Admitted From: Hospital to Hospital Transfer Plans for Post Hospital Care: Transfer Inp Rehab Fac History of present illness: Ms. Ireladn is a 81 year old female with h/o- atrial fibrillation and recent stroke, was transferred from inpatient rehab facility for evaluation of chest pain. Patient reports sudden onset of retrosternal pressure-like nonradiating pain, while she was at rest, around 10PM last night, that lasted for a few minutes and resolved spontaneously, not associated with dizziness, nausea, syncope, dyspnea. She also had a similar chest pain 2 days back and noted to have normal serum Troponin and was retained for continued rehabilitation. Patient was recently discharged from our hospital to acute rehab, after being diagnosed with acute ischemic stroke with right-sided weakness. Past Med Surg Social Fam HX - Past Medical History Medical history: arthritis, atrial fibrillation, COPD, CVA, GERD, hypertension, peripheral artery disease, renal disease, TIA Psychiatric history: depression - Past Surgical History Surgical History: angioplasty/stent (right leg), vascular surgery - Social History Smoking Status: Current every day smoker Packs per day: 0.75 Smokeless Tobacco Status: No Alcohol use: none Drug use: none Occupational status: retired Activity Level: Uses cane/walker Recent Out of Country Travel Within the Last 8 Weeks: No - Family History Mother Adopted: No Living Status: Age at : 73 Cause of : Lung cancer Hx Family Cardiac Disorders: No Hx Family Respiratory Disorders: No Hx Family Cancer: Yes Hx Family GI Disorders: Yes Hx Family Genitourinary Disorders: No Internal Medicine - H&P: Meds Atorvastatin Calcium [Lipitor] 80 mg PO HS 04/18/16 [History] Lisinopril [Zestril] 40 mg PO DAILY 04/18/16 [History] Metoprolol XL (24 HR) Succ [Toprol Xl] 50 mg PO DAILY 04/18/16 [History] Omeprazole [PriLOSEC] 20 mg PO DAILY 04/18/16 [History] Oxycodone HCl/Acetaminophen [Percocet 5-325 mg Tablet] 1 tab PO Q8H PRN [History] Rivaroxaban [Xarelto] 20 mg PO DAILY 04/18/16 [History] Ergocalciferol (VITAMIN D2) [Vitamin D2] 50,000 unit PO QWEEK 02/01/17 [History] Ferrous Sulfate 325 mg PO BID 02/03/17 [History] Gabapentin [Neurontin] 300 mg PO TID 02/03/17 [History] Aspirin 81 mg PO DAILY #30 tab.chew 02/07/17 [Rx] Allergies Erythromycin Base Allergy (Verified 02/03/17 15:53) Rash All Systems PM: A 10-system review of systems was performed and is negative for pertinent findings except as documented above in the HPI. - Constitutional Constitutional: no chills, no fever(s), no night sweats - EENT Eyes: no change in vision, no discharge, no pain, no photophobia Ears: no ear discharge, no ear pain, no tinnitus Nose, mouth and throat: no dysphagia, no nasal discharge, no neck pain, no sore throat - Cardiovascular Cardiovascular ROS IM: chest pain - Respiratory Respiratory: no cough, no dyspnea, no wheezing, no excessive phlegm production - Gastrointestinal Gastrointestinal: no abdominal pain, no diarrhea, no hematemesis, no hematochezia, no melena, no nausea, no vomiting - Genitourinary Genitourinary: no change in urinary stream, no dysuria, no flank pain, no hematuria - Musculoskeletal Musculoskeletal ROS IM: no numbness, no tingling - Integumentary Integumentary IM: no rash, no unusual bruising - Neurological Neurological ROS: no confusion, no convulsions, no focal weakness, no numbness, no tingling, no tremor(s) - Hematologic/Lymphatic Hematologic/Lymphatic: no easy bruising - Constitutional Vitals: Temp Pulse Resp BP Pulse Ox 97.6 F 52 16 137/66 95 02/11/17 04:59 02/11/17 04:59 02/11/17 04:59 02/11/17 04:59 02/11/17 04:59 General appearance: Present: A&O X 3, answers questions appropriately - Respiratory Respiratory exam: Present: CTAB. Absent: accessory muscle use, rales, rhonchi, wheezes - Cardiovascular Cardiovascular exam: Present: irregular rhythm, +S1, +S2. Absent: diastolic murmur, gallop, rubs, systolic murmur - GI/Abdominal GI/Abdominal exam: Present: normal bowel sounds, soft, no peritoneal signs. Absent: distended, tenderness - Extremities Exam Extremities exam: Present: full ROM, pedal edema, warm, radial pulses palpable and symetrical. Absent: calf tenderness, cyanotic - Neurological Exam Neurological exam: Present: CN II-XII intact, oriented X3. Absent: pronater drift, facial droop, speech deficit - Skin Skin exam: Present: dry, intact Internal Med - H&P Results - Labs CBC & Chem 7: 02/11/17 06:11 02/11/17 06:11 Labs: Short CBC 02/11/17 Range/Units 06:11 WBC 4.6 (4.3-11.1) K/mcL Hgb 10.3 L (11.5-15.4) g/dL Hct 33.6 L (35.3-44.9) % Plt Count 178 (140-400) K/mcL Neutrophils # 2.2 (1.6-8.9) K/mcL BMP 02/11/17 06:11 Sodium 138 Potassium 5.1 H Chloride 109 Carbon Dioxide 23 BUN 62 H Creatinine 1.67 H Glucose 79 Calcium 8.6 Cardiac Enzymes 02/11/17 Range/Units 06:11 Troponin I 0.12 H* (0-0.03) ng/mL
--- NOTE | 2017-02-11 08:00 | Cardiology Consult Note ---
Date of Encounter: 02/11/17 Time of Encounter: 07:56 Assessment and Plan (1) Elevated troponin level Current Visit: Yes Status: Acute Troponin elevated at 0.12, 012. Demand ischemia versus non-STEMI. Patient has chronic kidney disease stage III with slightly worsen kidney function, creatinine 1.67 , EFR 29. Baseline creatinine 1.1-1.5. She is also status post recent CVA. Continue to trend troponin. Recent TTE he on 02/05/2016 showed an EF of 60-65%, indeterminate diastolic dysfunction, no evidence of PFO, mild mitral regurgitation, mild tricuspid regurgitation, and severe pulmonary hypertension. Patient is high risk for left heart catheterization due to recent CVA on anticoagulation, and chronic kidney disease stage III. Discussed with Dr. Gonzalez, we'll proceed with stress test in a.m. (2) Chest pain Current Visit: Yes Status: Acute Atypical chest pain symptoms. Plan as described above. Mild troponin elevation in the setting of chronic kidney disease stage III. Multiple risk factors for CAD including tobacco use, hypertension, and peripheral vascular disease area Plan for stress test in a.m. Qualifiers: Chest pain type: unspecified Qualified Code(s): R07.9 - Chest pain, unspecified (3) Atrial fibrillation Current Visit: Yes Status: Chronic Appears to have chronic atrial fibrillation. Currently on Xarelto. History of noncompliance. Importance of continuing Xarelto without missing doses discussed. Currently rate controlled. Average heart rate is 56 bpm. Low heart rate seen mostly during nocturnal hours. Minimum heart rate was 29 bpm at 5:30 AM. Heart rate noted to be in the 30s at 8:30 AM this morning. Decrease Toprol- XL to 25 mg daily. Qualifiers: Atrial fibrillation type: chronic Qualified Code(s): I48.2 - Chronic atrial fibrillation Discussion w patient/family: The assessment and plan as outlined above was discussed with the patient and/or family members who expressed understanding and agreement. All questions were answered. Thank you for involving us in the care of your patient. Please call with any questions. History of Present Illness Consult date: 02/11/17 Requesting physician: Patty Melendrez Consult reason: chest pain Chief complaint: Chest pain History of present illness: Ms. Ireland is a 81 year old female who c/o sudden onset of chest pain at 10:00 pm last night while laying in bed. She was transferred from the [facility] to [facility] for further evaluation. She was recently discharged on 02/07/2017 after having an acute CVA. Since her last hospital stay she has noted intermittent brief episodes of midsternal chest discomfort. She has a past medical history of atrial fibrillation on Xarelto, medical noncompliance, tobacco use, chronic kidney disease stage III, COPD, peripheral vascular disease, hypertension, and GERD. Cardiology consult for evaluation of chest pain. She has no previous history of coronary artery disease. Recent TTE he on 02/05/2016 showed an EF of 60-65%, indeterminate diastolic dysfunction, no evidence of PFO, mild mitral regurgitation, mild tricuspid regurgitation, and severe pulmonary hypertension. Past Med Surg Social Fam HX - Past Medical History Medical history: arthritis, atrial fibrillation, COPD, CVA, GERD, hypertension, peripheral artery disease, renal disease, TIA Psychiatric history: depression - Past Surgical History Surgical History: angioplasty/stent (right leg), vascular surgery - Social History Smoking Status: Current every day smoker Packs per day: 0.75 Smokeless Tobacco Status: No Alcohol use: none Drug use: none - Family History Mother Adopted: No Living Status: Age at : 73 Cause of : Lung cancer Hx Family Cardiac Disorders: No Hx Family Respiratory Disorders: No Hx Family Cancer: Yes Hx Family GI Disorders: Yes Hx Family Genitourinary Disorders: No Medications and Allergies Atorvastatin Calcium [Lipitor] 80 mg PO HS 04/18/16 [History] Lisinopril [Zestril] 40 mg PO DAILY 04/18/16 [History] Metoprolol XL (24 HR) Succ [Toprol Xl] 50 mg PO DAILY 04/18/16 [History] Omeprazole [PriLOSEC] 20 mg PO DAILY 04/18/16 [History] Oxycodone HCl/Acetaminophen [Percocet 5-325 mg Tablet] 1 tab PO Q8H PRN [History] Rivaroxaban [Xarelto] 20 mg PO DAILY 04/18/16 [History] Ergocalciferol (VITAMIN D2) [Vitamin D2] 50,000 unit PO QWEEK 02/01/17 [History] Ferrous Sulfate 325 mg PO BID 02/03/17 [History] Gabapentin [Neurontin] 300 mg PO TID 02/03/17 [History] Aspirin 81 mg PO DAILY #30 tab.chew 02/07/17 [Rx] Allergies Erythromycin Base Allergy (Verified 02/03/17 15:53) Rash All Systems Review: A 10-system review of systems was performed and is negative for pertinent findings except as documented above in the HPI. Physical Examination Vital Signs, Last 4 Hours Temp Pulse Resp BP Pulse Ox 02/11/17 07:26 97.6 F 50 18 154/78 98 02/11/17 04:59 97.6 F 52 16 137/66 95 General: Conversant, No Apparent Distress HEENT: Atraumatic, Normocephaly, Mucus Membranes Moist Neck: No JVD, Normal carotid pulses Cardiac: Reg Rate and Rhythm, Normal S1 and S2, No Murmur Lungs: Normal Breath Sounds, No Wheeze, Rales, Rhonchi Neuro: Alert and responsive, Other (Right-sided weakness noted) Abdomen: Soft, Non-Tender Skin: No rashes noted on visualized skin Musculoskeletal: No Chest Wall Tenderness Extremities: No Clubbing, No Cyanosis, No Edema, Normal Pulses Results 02/11/17 06:11 02/11/17 06:11 Lab Results 02/11/17 02/11/17 02/11/17 06:11 06:11 06:11 WBC 4.6 Hgb 10.3 L Hct 33.6 L Plt Count 178 Sodium 138 Potassium 5.1 H Chloride 109 Carbon Dioxide 23 BUN 62 H Creatinine 1.67 H Glucose 79 Calcium 8.6 Magnesium 2.0 Troponin I 0.12 H* - EKG Interpretation EKG results cardiology: personally reviewed (EKG shows atrial fibrillation with slow ventricular response heart rate 50.) Consult Discharge Plan - Plan Referrals: Patsy Caldera MD [Primary Care Provider] -
[2017-02-11] MEDS ORDERED: Metoprolol XL (24 HR) Succ 50 MG TAB.ER.24H PO SCH (09:00)
[2017-02-11] MEDS ORDERED: *HR* Rivaroxaban 10 MG TABLET PO SCH (09:00)
--- NOTE | 2017-02-11 10:22 | Internal Med Progress Note ---
<Doe Mendiola - Last Filed: 02/11/17 11:11> Date of Encounter: 02/11/17 Time of Encounter: 10:18 - Assessment and plan (1) Chest pain Current Visit: Yes Status: Acute Assessment and plan: 81 y/o F presents with CP, substernal, lased a few seconds, not associated with nasuea, vomiting, sweating, syncope, confusion. Recent echo 60-65%, indeterminant diastolic dysfunction, no evidence of PFO, mild mitral regurgitation, mild tricuspid regurgitation, severe pulmonary hypertension. Initial troponin 0.12 and .12, trending troponin in setting of CKD 3. Currently patient denies chest pain, shortness of breath. Continue aspirin, statin, nitroglycerin sublingual. Cardiology was consulted and stated overnight patient was bradycardic with heart rate in the upper 20s and 30s. Decrease metoprolol to 25 mg daily. Continue Xarelto. Stress test planned in the morning. Qualifiers: Chest pain type: other chest pain Qualified Code(s): R07.89 - Other chest pain; R07.8 - Other chest pain (2) Atrial fibrillation Current Visit: Yes Status: Chronic Assessment and plan: EKG Afib rvr with slow ventricular response. Bradycardic with rate of 54. Decrease metoprolol succinate to 25 mg daily. Continues Xarelto Qualifiers: Atrial fibrillation type: chronic Qualified Code(s): I48.2 - Chronic atrial fibrillation (3) Elevated troponin level Current Visit: Yes Status: Acute Assessment and plan: plan as above. continue to trend troponin. stress test tomorrow. (4) Tobacco abuse Current Visit: Yes Status: Chronic Assessment and plan: Patient is a 26-mavz-bmcd smoking history. She states she is willing to quit. hold nicotine patch as patient will have stress test tomorrow. (5) Essential hypertension Current Visit: Yes Status: Chronic Assessment and plan: controlled. Will hold lisinopril due to hyperkalemia. Start amlodipine 5mg daily. - Subjective Interval history: 81-year-old female who was recently discharged for a CVA with residual right- sided weakness from [facility] presents with chief complaint of substernal chest pain that she had yesterday which lasted a few seconds, was a heavy pressure not associated with nausea, vomiting, palpitations, diaphoresis, syncope. She had 2 episodes of this pain. She denies the pain being worse with eating. This morning patient says she is not short of breath, denies chest pain, nausea , sweating. States she has residual weakness in the right upper and lower extremity. Denies any new onset of numbness, tingling, weakness, slurred speech. - Constitutional Vitals: Temp Pulse Resp BP Pulse Ox 97.6 F 50 18 154/78 98 02/11/17 07:26 02/11/17 07:26 02/11/17 07:26 02/11/17 07:26 02/11/17 07:26 General appearance: Present: A&O X 3, pleasant, answers questions appropriately - Respiratory Respiratory exam: Present: CTAB. Absent: accessory muscle use, rales, rhonchi, wheezes - Cardiovascular Cardiovascular exam: Present: bradycardia, irregular rhythm (Irregularly irregular) - GI/Abdominal GI/Abdominal exam: Present: normal bowel sounds, soft, no peritoneal signs. Absent: distended, tenderness - Extremities Exam Extremities exam: Present: warm, radial pulses palpable and symetrical. Absent : calf tenderness, cyanotic, pedal edema Internal Medicine: Result - Labs CBC & Chem 7: 02/11/17 06:11 02/11/17 06:11 Labs: Short CBC 02/11/17 Range/Units 06:11 WBC 4.6 (4.3-11.1) K/mcL Hgb 10.3 L (11.5-15.4) g/dL Hct 33.6 L (35.3-44.9) % Plt Count 178 (140-400) K/mcL Neutrophils # 2.2 (1.6-8.9) K/mcL BMP 02/11/17 06:11 Sodium 138 Potassium 5.1 H Chloride 109 Carbon Dioxide 23 BUN 62 H Creatinine 1.67 H Glucose 79 Calcium 8.6 Cardiac Enzymes 02/11/17 Range/Units 06:11 Troponin I 0.12 H* (0-0.03) ng/mL Consult Discharge Plan - Plan Referrals: Patsy Caldera MD [Primary Care Provider] - <Ezequiel Medina - Last Filed: 02/11/17 18:53> Date of Encounter: 02/11/17 - Constitutional Vitals: Temp Pulse Resp BP Pulse Ox 97.6 F 60 15 136/68 95 02/11/17 15:00 02/11/17 15:00 02/11/17 15:00 02/11/17 15:00 02/11/17 15:00 Internal Medicine: Result - Labs CBC & Chem 7: 02/11/17 06:11 02/11/17 06:11 Labs: Short CBC 02/11/17 Range/Units 06:11 WBC 4.6 (4.3-11.1) K/mcL Hgb 10.3 L (11.5-15.4) g/dL Hct 33.6 L (35.3-44.9) % Plt Count 178 (140-400) K/mcL Neutrophils # 2.2 (1.6-8.9) K/mcL BMP 02/11/17 06:11 Sodium 138 Potassium 5.1 H Chloride 109 Carbon Dioxide 23 BUN 62 H Creatinine 1.67 H Glucose 79 Calcium 8.6 Cardiac Enzymes 02/11/17 02/11/17 Range/Units 06:11 13:46 Troponin I 0.12 H* 0.09 H* (0-0.03) ng/mL - Attending Attestation Pt admitted earlier today with chest pain and atrial fibrillation. She is doing better at this time Exam alert. Comfortable I/P 1. Chest pain - stress per card tomorrow Other plan as ordered
[2017-02-11] MEDS: Aspirin 81 MG TAB.CHEW PO SCH (11:02)
[2017-02-11] MEDS: Gabapentin 300 MG CAPSULE PO SCH ×3 (11:02→20:09)
[2017-02-11] MEDS ORDERED: amLODIPine 5 MG TABLET PO SCH (11:30)
[2017-02-12] MEDS: Loratadine 10 MG TABLET PO SCH ×2 (01:02→12:36)
[2017-02-12 05:48] LABS: Hematocrit 33.3 % (35.3-44.9); Hemoglobin 10.3 g/dL (11.5-15.4); Mean Corpuscular HGB Conc 30.9 g/dL (31.6-35.5); Mean Corpuscular Hemoglobin 29.7 pg (28.0-33.3); Mean Platelet Volume 11.2 fL (9.4-12.4); Platelet Count 218 K/mcL (140-400); Red Blood Count 3.47 M/mcL (3.82-4.97)
[2017-02-12 06:11] LABS: Calcium 8.8 mg/dL (8.6-10.8); Magnesium 2.1 mg/dL (1.6-2.6); Potassium 5.1 mEq/L (3.5-4.5)
[2017-02-12] MEDS ORDERED: Regadenoson 0.4 MG/5 ML SYRINGE IVP ONE (06:56)
--- NOTE | 2017-02-12 09:11 | Cardiology Progress Note ---
Date of Encounter: 02/12/17 Time of Encounter: 09:09 Assessment and Plan (1) Elevated troponin level Current Visit: Yes Status: Acute Troponin elevated at 0.12, 012, .09, 0.7. Demand ischemia in the setting of chronic kidney disease stage III with slightly worsen kidney function, creatinine 1.67 , EFR 29. Baseline creatinine 1.1-1.5. She is also status post recent CVA. Recent TTE he on 02/05/2016 showed an EF of 60-65%, indeterminate diastolic dysfunction, no evidence of PFO, mild mitral regurgitation, mild tricuspid regurgitation, and severe pulmonary hypertension. She is currently chest pain-free. Patient is high risk for left heart catheterization due to recent CVA on anticoagulation, and chronic kidney disease stage III. Stress test is pending this morning.. (2) Chest pain Current Visit: Yes Status: Acute Atypical chest pain symptoms. Plan as described above. Mild troponin elevation in the setting of chronic kidney disease stage III. Multiple risk factors for CAD including tobacco use, hypertension, and peripheral vascular disease area Stress test is pending. Qualifiers: Chest pain type: unspecified Qualified Code(s): R07.9 - Chest pain, unspecified (3) Atrial fibrillation Current Visit: Yes Status: Chronic Appears to have chronic atrial fibrillation. Currently on Xarelto. History of noncompliance. Importance of continuing Xarelto without missing doses discussed. Currently rate controlled. Metoprolol decreased secondary to atrial fibrillation with slow ventricular response on admission. Heart rate is now in the 70s. Qualifiers: Atrial fibrillation type: chronic Qualified Code(s): I48.2 - Chronic atrial fibrillation (4) Hypertension Current Visit: Yes Status: Chronic Uncontrolled blood pressure. Increase Norvasc. Low-sodium diet. Qualifiers: Hypertension type: essential hypertension Qualified Code(s): I10 - Essential (primary) hypertension Discussion w patient/family: The assessment and plan as outlined above was discussed with the patient and/or family members who expressed understanding and agreement. All questions were answered. Thank you for involving us in the care of your patient. Please call with any questions. Subjective Principal diagnosis: Chest pain. Interval history: Ms. Ireland denies recurrent chest pain overnight. Planning for stress test this morning. Remains in rate controlled afib. Objective Vital Signs, Last 4 Hours Temp Pulse Resp BP Pulse Ox 02/12/17 06:59 97.9 F 73 18 178/95 95 General: Conversant, No Apparent Distress HEENT: Atraumatic, Normocephaly, Mucus Membranes Moist Neck: No JVD, Normal carotid pulses Cardiac: Other (Irregularly irregular) Lungs: Normal Breath Sounds, No Wheeze, Rales, Rhonchi Neuro: Alert and responsive, No focal deficits noted Abdomen: Soft, Non-Tender Skin: No rashes noted on visualized skin Musculoskeletal: No Chest Wall Tenderness Extremities: No Clubbing, No Cyanosis, No Edema, Normal Pulses Results 02/12/17 04:07 02/12/17 04:07 Lab Results 02/11/17 02/11/17 02/12/17 13:46 19:37 04:07 WBC 5.3 Hgb 10.3 L Hct 33.3 L Plt Count 218 Sodium Potassium Chloride Carbon Dioxide BUN Creatinine Glucose Calcium Magnesium Troponin I 0.09 H* 0.07 H* 02/12/17 04:07 WBC Hgb Hct Plt Count Sodium 139 Potassium 5.1 H Chloride 107 Carbon Dioxide 23 BUN 62 H Creatinine 1.73 H Glucose 81 Calcium 8.8 Magnesium 2.1 Troponin I - Imaging and Cardiology Stress Test: pending Consult Discharge Plan - Plan Referrals: Patsy Caldera MD [Primary Care Provider] -
--- NOTE | 2017-02-12 09:37 | Internal Med Progress Note ---
<Doe Mendiola - Last Filed: 02/12/17 09:35> Date of Encounter: 02/12/17 Time of Encounter: 09:35 - Assessment and plan (1) Chest pain Current Visit: Yes Status: Acute Assessment and plan: 81 y/o F presents with CP, substernal, lasted a few seconds, not associated with nasuea, vomiting, sweating, syncope, confusion. Recent echo 60-65%, indeterminant diastolic dysfunction, no evidence of PFO, mild mitral regurgitation, mild tricuspid regurgitation, severe pulmonary hypertension. Initial troponin 0.12, 0.12, 0.09, 0.07 trending down Currently patient denies chest pain, shortness of breath. Continue aspirin, statin, nitroglycerin sublingual. HR in 70s after metoprolol dose decrease. Continue Xarelto. Stress test planned today. Qualifiers: Chest pain type: chest pain due to myocardial ischemia Ischemic chest pain type: unstable angina pectoris Qualified Code(s): I20.0 - Unstable angina (2) Atrial fibrillation Current Visit: Yes Status: Chronic Assessment and plan: EKG Afib rvr with slow ventricular response. rate in 70s continue metoprolol succinate to 25 mg daily. Continues Xarelto Qualifiers: Atrial fibrillation type: chronic Qualified Code(s): I48.2 - Chronic atrial fibrillation (3) Elevated troponin level Current Visit: Yes Status: Acute Assessment and plan: plan as above. troponin peak .12 and trending downward. stress test tomorrow. (4) Tobacco abuse Current Visit: Yes Status: Chronic Assessment and plan: Patient is a [id number] smoking history. She states she is willing to quit. hold nicotine patch as patient will have stress test tomorrow. (5) Essential hypertension Current Visit: Yes Status: Chronic Assessment and plan: BP increase to 179/95 this morning. Up from 136/66 yesterday. Increase amlodipine to 10mg daily. Will hold lisinopril due to hyperkalemia. (6) CKD (chronic kidney disease) Current Visit: Yes Status: Chronic Assessment and plan: Patient had worsening of her creatinine overnight. BUN/Scr>20: prerenal Scr 1.73. Start 0.9% NS 100/hr total 1L BMP tomorrow. Qualifiers: Chronic kidney disease stage: stage 3 (moderate) Qualified Code(s): N18.3 - Chronic kidney disease, stage 3 (moderate) - Subjective Interval history: Patient states that she had chest pain this morning or last a few seconds that was similar to her previous chest pain. However, currently patient is chest pain-free. Has no complaints. - Constitutional Vitals: Temp Pulse Resp BP Pulse Ox 97.9 F 73 18 178/95 95 02/12/17 06:59 02/12/17 06:59 02/12/17 06:59 02/12/17 06:59 02/12/17 06:59 General appearance: Present: A&O X 3, pleasant, answers questions appropriately - Respiratory Respiratory exam: Present: CTAB - Cardiovascular Cardiovascular exam: Present: irregular rhythm (irregularly ), +S1, +S2 - GI/Abdominal GI/Abdominal exam: Present: normal bowel sounds, soft. Absent: tenderness - Extremities Exam Extremities exam: Present: warm, radial pulses palpable and symetrical. Absent : calf tenderness, cyanotic, pedal edema - Neurological Exam Neurological exam: Present: CN II-XII intact, oriented X3, no focal deficits, strengths equal and symetr throughout (4/5 strength right upper and lower extremity. ). Absent: motor sensory deficit, pronater drift, facial droop, speech deficit - Psychiatric Psychiatric exam: Present: normal affect, normal mood - Skin Skin exam: Present: dry, intact Internal Medicine: Result - Labs CBC & Chem 7: 02/12/17 04:07 02/12/17 04:07 Labs: Short CBC 02/12/17 Range/Units 04:07 WBC 5.3 (4.3-11.1) K/mcL Hgb 10.3 L (11.5-15.4) g/dL Hct 33.3 L (35.3-44.9) % Plt Count 218 (140-400) K/mcL BMP 02/12/17 04:07 Sodium 139 Potassium 5.1 H Chloride 107 Carbon Dioxide 23 BUN 62 H Creatinine 1.73 H Glucose 81 Calcium 8.8 Cardiac Enzymes 02/11/17 02/11/17 Range/Units 13:46 19:37 Troponin I 0.09 H* 0.07 H* (0-0.03) ng/mL Consult Discharge Plan - Plan Referrals: Patsy Caldera MD [Primary Care Provider] - <Ezequiel Medina - Last Filed: 02/12/17 15:14> Date of Encounter: 02/12/17 - Assessment and plan (1) Chest pain Current Visit: Yes Status: Acute Qualifiers: Chest pain type: chest pain due to myocardial ischemia Ischemic chest pain type: unstable angina pectoris Qualified Code(s): I20.0 - Unstable angina (2) Atrial fibrillation Current Visit: Yes Status: Chronic Qualifiers: Atrial fibrillation type: chronic Qualified Code(s): I48.2 - Chronic atrial fibrillation (3) Elevated troponin level Current Visit: Yes Status: Acute (4) COPD (chronic obstructive pulmonary disease) Current Visit: Yes Status: Chronic Qualifiers: COPD type: unspecified COPD Qualified Code(s): J44.9 - Chronic obstructive pulmonary disease, unspecified (5) Tobacco abuse Current Visit: Yes Status: Chronic (6) CKD (chronic kidney disease) Current Visit: Yes Status: Chronic Qualifiers: Chronic kidney disease stage: stage 3 (moderate) Qualified Code(s): N18.3 - Chronic kidney disease, stage 3 (moderate) (7) Essential hypertension Current Visit: Yes Status: Chronic - Constitutional Vitals: Temp Pulse Resp BP Pulse Ox 97.9 F 62 20 171/70 98 02/12/17 06:59 02/12/17 13:00 02/12/17 13:00 02/12/17 13:00 02/12/17 13:00 Internal Medicine: Result - Labs CBC & Chem 7: 02/12/17 04:07 02/12/17 04:07 Labs: Short CBC 02/12/17 Range/Units 04:07 WBC 5.3 (4.3-11.1) K/mcL Hgb 10.3 L (11.5-15.4) g/dL Hct 33.3 L (35.3-44.9) % Plt Count 218 (140-400) K/mcL BMP 02/12/17 04:07 Sodium 139 Potassium 5.1 H Chloride 107 Carbon Dioxide 23 BUN 62 H Creatinine 1.73 H Glucose 81 Calcium 8.8 Cardiac Enzymes 02/11/17 Range/Units 19:37 Troponin I 0.07 H* (0-0.03) ng/mL - Attending Attestation I examined this patient and my medical decision-making was reviewed with the Resident Physician on 02/12/17. I agree with the documented findings, disposition and treatment plan as described except to the extent set forth below. Ms. Campbell is currently admitted for chest pain and atrial fibrillation. She is moderate risk due to potential for worsening cardiac status. Ms. Campbell just returned from stress. She feels OK. Denies pain. Heart rate not rapid. No fever or chills. No GI symptoms. Exam Alert. Comfortable Heart irreg - not tachy Lungs diminished Abd soft No edema I/P 1. Chest pain 2. HTN 3. atrial fib Further diagnoses and plan as above.
[2017-02-12] MEDS ORDERED: 0.9 % Sodium Chloride 1,000 ML IVC ONE (09:44)
--- NOTE | 2017-02-12 12:22 | Nuclear Medicine Stress Report ---
Regadenoson Nuclear Stress Name: Alba Ireland Date of Study: 02/12/2017 Date: 1935 Ht: 57.0 in Medical Record#: [id number] Age: 81 Wt: 110.0 lb Gender: Female Order #: [id number] Location: [facility] Room: 2NE1 Supervising Provider: Arturo Pino CNP Reading Physician: Blade Leung MD, [facility] Ordering Physician: Ezequiel Medina DO Primary Care Physician: Patsy Caldera MD Stress Technologist: Stanford Macias INSURANCE APPLICATION INVESTIGATOR, CCT [employer] Stabilizer: Gómez Joseph Indications: Chest Pain, A-fib Impression: Perfusion imaging was negative for ischemia or infarct however there is subdiaphragmatic activity that decreases diagnostic accuracy. Pharmacologic ECG was non diagnostic for ischemia. Patient had no chest pain with stress. Normal hemodynamic response. Gated EF = >70%. There is no evidence of TID. If clinical suspicion persists, consider different stress modality or cardiology consultation. History: Hypertension Hypercholesteremia History of Smoking Stress Test Summary: Stress Test Type: Pharmacologic Regadenoson 0.4mg/5ml given IV Baseline Information: Initial Heart Rate: 69 Blood Pressure: 124/84 Stress Information: Stress Time: 4 min 00 sec Test Terminated Due to (primary): Completed Protocol Maximum Blood Pressure: 130/56 Maximum Heart Rate: 88 Percent Maximum Heart Rate Achieved: 64 Double Product: 12120 METS Reached: 1 Nuclear Summary: SPECT myocardial perfusion imaging using Tc99m Sestamibi given intravenously was performed at rest and following cardiac stress testing. The resting images were obtained following initial dose of 8.9 mCi. Following stress an additional dose of 34.7 mCi was given at peak exercise or 30 seconds post regadenoson infusion. Medication Given: Time Medication Dose Units Route Findings: Stress Note * Resting ECG demonstrated normal sinus rhythm. * Evidence of previous [place] in Anterior. * Rare PACs noted prior to exam beginning. * Pharmacologic stress ECG is non diagnostic for ischemia due to failure to reach target heartrate. * Occasional PACs noted during stress. * Patient had no chest pain during stress. Hemodynamic responses * Normal hemodynamic responses to pharmacologic stress. Study Quality * Study quality is average. Gated EF > 70% * Gated EF > 70%. Left Ventricle * The left ventricle is not dilated. NORMALS * Normal wall motion. * Normal segmental perfusion in stress. * Normal Segmental Perfusion in rest. TID * No evidence of transient ischemic dilatation. Updated by Blade Leung MD, [facility] on 02/12/2017 12:07:33 PM electronically signed on 02/12/2017 12:19:04 PM with status of Final
[2017-02-12] MEDS: Metoprolol XL (24 HR) Succ 25 MG TAB.ER.24H PO SCH (12:23)
[2017-02-12] MEDS: Aspirin 81 MG TAB.CHEW PO SCH (12:23)
[2017-02-12] MEDS: Gabapentin 300 MG CAPSULE PO SCH ×3 (12:23→19:54)
[2017-02-12] MEDS: *HR* Rivaroxaban 15 MG TABLET PO SCH (12:23)
[2017-02-12] MEDS: amLODIPine 5 MG TABLET PO SCH (12:23)
--- NOTE | 2017-02-12 20:12 | Electrocardiograph Report ---
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
[2017-02-13 04:50] LABS: Hematocrit 31.7 % (35.3-44.9); Hemoglobin 9.7 g/dL (11.5-15.4); Mean Corpuscular HGB Conc 30.6 g/dL (31.6-35.5); Mean Corpuscular Hemoglobin 29.6 pg (28.0-33.3); Mean Corpuscular Volume 96.6 fL (83.0-100.0); Mean Platelet Volume 11.2 fL (9.4-12.4); Platelet Count 226 K/mcL (140-400); Red Blood Count 3.28 M/mcL (3.82-4.97); Red Cell Distribution Width 15.1 % (11.5-14.5)
[2017-02-13 04:51] LABS: Calcium 8.4 mg/dL (8.6-10.8); Potassium 4.8 mEq/L (3.5-4.5)
[2017-02-13] MEDS: Loratadine 10 MG TABLET PO SCH (08:19)
[2017-02-13] MEDS: Gabapentin 300 MG CAPSULE PO SCH ×3 (08:20→19:44)
[2017-02-13] MEDS: Aspirin 81 MG TAB.CHEW PO SCH (08:20)
[2017-02-13] MEDS: Metoprolol XL (24 HR) Succ 25 MG TAB.ER.24H PO SCH (08:20)
[2017-02-13] MEDS: *HR* Rivaroxaban 15 MG TABLET PO SCH (08:20)
[2017-02-13] MEDS: amLODIPine 5 MG TABLET PO SCH (08:20)
--- NOTE | 2017-02-13 09:39 | Cardiology Progress Note ---
Date of Encounter: 02/13/17 Time of Encounter: 09:00 Assessment and Plan (1) Elevated troponin level Current Visit: Yes Status: Acute Troponin elevated at 0.12, 012, .09, 0.7. Demand ischemia in the setting of chronic kidney disease stage III with slightly worsen kidney function, creatinine 1.67 , EFR 29. Baseline creatinine 1.1-1.5. She is also status post recent CVA. Recent TTE he on 02/05/2016 showed an EF of 60-65%, indeterminate diastolic dysfunction, no evidence of PFO, mild mitral regurgitation, mild tricuspid regurgitation, and severe pulmonary hypertension. She is currently chest pain-free. Patient is high risk for left heart catheterization due to recent CVA on anticoagulation, and chronic kidney disease stage III. Stress test completed, perfusion imaging was negative for ischemia. It was there was subdiaphragmatic activity that decreased diagnostic accuracy. Pharmacologic ECG was negative for ischemia. Gated EF 70%. No evidence of 3 times a day. Recommend continuing medical management. Aspirin, statin, beta zainab. She remains chest pain-free. Cardiology will sign off. Please call with questions. Outpatient follow-up will be scheduled in 1 to 2 weeks. (2) Chest pain Current Visit: Yes Status: Acute Atypical chest pain symptoms on admission. Plan as described above. Mild troponin elevation in the setting of chronic kidney disease stage III. Multiple risk factors for CAD including tobacco use, hypertension, and peripheral vascular disease area Stress test was negative for ischemia. Qualifiers: Qualified Code(s): I20.0 - Unstable angina (3) Atrial fibrillation Current Visit: Yes Status: Chronic Appears to have chronic atrial fibrillation. Currently on Xarelto. History of noncompliance. Importance of continuing Xarelto without missing doses discussed. Currently rate controlled. Metoprolol decreased secondary to atrial fibrillation with slow ventricular response on admission, HR 29-50's. Heart rate is now in the 60-70s during waking hours. Qualifiers: Qualified Code(s): I48.2 - Chronic atrial fibrillation (4) Hypertension Current Visit: Yes Status: Chronic Uncontrolled blood pressure during stay. Norvasc increased yesterday. B/p improved. Low-sodium diet. Qualifiers: Qualified Code(s): I10 - Essential (primary) hypertension Discussion w patient/family: The assessment and plan as outlined above was discussed with the patient and/or family members who expressed understanding and agreement. All questions were answered. Thank you for involving us in the care of your patient. Please call with any questions. Subjective Principal diagnosis: Chest pain. Interval history: Ms. Ireland denies recurrent chest pain. Objective Vital Signs, Last 4 Hours Temp Pulse Resp BP Pulse Ox 02/13/17 06:40 97.7 F 61 16 145/74 91 General: Conversant, No Apparent Distress HEENT: Atraumatic, Normocephaly, Mucus Membranes Moist Neck: No JVD, Normal carotid pulses Cardiac: Other (Irregularly irregular) Lungs: Normal Breath Sounds, No Wheeze, Rales, Rhonchi Neuro: Alert and responsive, No focal deficits noted Abdomen: Soft, Non-Tender Skin: No rashes noted on visualized skin Musculoskeletal: No Chest Wall Tenderness Extremities: No Clubbing, No Cyanosis, No Edema, Normal Pulses Results 02/13/17 04:17 02/13/17 04:17 Lab Results 02/13/17 02/13/17 04:17 04:17 WBC 4.9 Hgb 9.7 L Hct 31.7 L Plt Count 226 Sodium 141 Potassium 4.8 H Chloride 111 H Carbon Dioxide 20 BUN 58 H Creatinine 1.70 H Glucose 92 Calcium 8.4 L - Imaging and Cardiology Stress Test: report reviewed Echo: report reviewed - EKG Interpretation EKG results cardiology: other (24 hour telemetry review shows average heart rate of 65 bpm. Minimum heart rate was 41 bpm at 4:30 AM. Heart rates below 50 only seen during nocturnal hours.) Consult Discharge Plan - Plan Referrals: Patsy Caldera MD [Primary Care Provider] -
--- NOTE | 2017-02-13 09:46 | Discharge Summary ---
Date of Encounter: 02/13/17 Time of Encounter: 09:00 - Discharge Diagnosis (1) Chest pain Priority: Primary Status: Acute Qualifiers: Chest pain type: chest pain due to myocardial ischemia Ischemic chest pain type: unstable angina pectoris Qualified Code(s): I20.0 - Unstable angina (2) Atrial fibrillation Priority: Primary Status: Chronic Qualifiers: Atrial fibrillation type: chronic Qualified Code(s): I48.2 - Chronic atrial fibrillation (3) Elevated troponin level Priority: Secondary Status: Acute (4) COPD (chronic obstructive pulmonary disease) Priority: Secondary Status: Chronic Qualifiers: COPD type: unspecified COPD Qualified Code(s): J44.9 - Chronic obstructive pulmonary disease, unspecified (5) Tobacco abuse Priority: Secondary Status: Chronic (6) CKD (chronic kidney disease) Priority: Secondary Status: Chronic Qualifiers: Chronic kidney disease stage: stage 3 (moderate) Qualified Code(s): N18.3 - Chronic kidney disease, stage 3 (moderate) (7) Essential hypertension Priority: Secondary Status: Chronic - Discharge Medications Prescriptions: OxyCODONE/APAP 5/325 [Percocet 5/325 MG] 1 each PO Q8H PRN #6 tablet PRN Reason: Pain Home Medications: Oxycodone HCl/Acetaminophen [Percocet 5-325 mg Tablet] 1 tab PO Q8H PRN [History] Ergocalciferol (VITAMIN D2) [Vitamin D2] 50,000 unit PO QWEEK 02/01/17 [History] Ferrous Sulfate 325 mg PO BID 02/03/17 [History] Gabapentin [Neurontin] 300 mg PO TID 02/03/17 [History] Aspirin 81 mg PO DAILY #30 tab.chew 02/07/17 [Rx] Sertraline [Zoloft] 100 mg PO DAILY 02/11/17 [History] Atorvastatin [Lipitor] 80 mg PO HS tablet 02/13/17 [Rx] Loratadine [Claritin] 10 mg PO DAILY tablet 02/13/17 [Rx] Metoprolol XL (24 HR) Succ [Toprol Xl] 25 mg PO DAILY tab.er.24h 02/13/17 [Rx] Nitroglycerin 0.4 mg SL Q5MIN PRN #0 tab.subl 02/13/17 [Rx] Omeprazole [PriLOSEC] 20 mg PO DAILY@0630 capsule. 02/13/17 [Rx] OxyCODONE/APAP 5/325 [Percocet 5/325 MG] 1 each PO Q8H PRN #6 tablet 02/13/17 [ Rx] Rivaroxaban [Xarelto] 15 mg PO DAILY tablet 02/13/17 [Rx] amLODIPine [Norvasc] 10 mg PO DAILY tablet 02/13/17 [Rx] Allergies/Adverse Reactions: Allergies Erythromycin Base Allergy (Verified 02/03/17 15:53) Rash Procedures/tests Complete & Pending: Procedures Performed prior 72 hours Category Date Time Status NM mariya perf SPECT multi [NM] Routine Exams 02/11/17 11:30 Taken EKG [ECG 12 lead ECG] [ECG] Stat Y 02/11/17 05:47 Completed SP pharm nuclear stress Routine Y 02/12/17 00:01 Completed Date of admission: 02/11/17 05:32 Primary care physician: Patsy Delaney Consults: 02/11/17 05:39 Consult to Cardiology [CONS] Routine Comment: Consulting Provider: [facility] [place] Reason for Consult: Chest pain with new elevated Troponin Call Completed: No Discharging clinician: Ezequiel Medina Anticipated date of discharge: 02/13/17 - Patient Status Disposition: Transfer Hospital Swing Bed Condition: Good Functional capacity at discharge: independent ambulation Overall status at discharge: patient is progressing back to baseline - Discharge Instructions Follow Up With: Patsy Caldera MD [Primary Care Provider] - - Diet and Activity Activity: as per physical therapy Diet: low salt diet Hospital course: Ms. Ireland is a 81 year old female who was at rehab following acute CVA when she developed chest pain and elevated troponin. She was evaluated and transferred to [facility] for further care. Ms. Ireland was admitted to [facility]. She was continued on her home meds of beta zainab, Xarelto, ASA and statin. She remained rate controlled. She denied recurrent chest pain. She was seen by cardiology and underwent stress test which was negative. On 02/13 she was afebrile with stable vitals. Heart rate was controlled and she had no further chest pain. She was evaluated by PT/OT and recommended return to swing/rehab. She was discharged at that time. - Time Spent with Patient Total time spent providing and/or coordinating discharge services: 39min - Constitutional Vitals: Temp Pulse Resp BP Pulse Ox 97.7 F 61 16 145/74 91 02/13/17 06:40 02/13/17 06:40 02/13/17 06:40 02/13/17 06:40 02/13/17 06:40 General appearance: Present: A&O X 3, pleasant, answers questions appropriately - Head Head exam: Present: normocephalic - Eye Eye exam: Present: conjuntiva pink - ENT ENT exam: Present: mucous membranes moist - Respiratory Respiratory exam: Present: CTAB. Absent: rales, wheezes - Cardiovascular Cardiovascular exam: Present: irregular rhythm. Absent: tachycardia - GI/Abdominal GI/Abdominal exam: Present: soft. Absent: tenderness - Extremities Exam Extremities exam: Present: warm. Absent: tenderness - Neurological Exam Neurological exam: Present: alert, oriented X3 - Skin Skin exam: Present: dry, warm. Absent: rash
--- NOTE | 2017-02-13 13:34 | Physician Discharge Referral ---
ExtendedCare Referral Info Provider in Charge: Ezequiel Medina DO Provider in Charge after Transfer: PCP Institutional Level of Care: Skilled - Diagnosis (1) Chest pain Priority: Primary Status: Acute (2) Atrial fibrillation Priority: Primary Status: Chronic (3) Elevated troponin level Priority: Secondary Status: Acute (4) COPD (chronic obstructive pulmonary disease) Priority: Secondary Status: Chronic (5) Tobacco abuse Priority: Secondary Status: Chronic (6) CKD (chronic kidney disease) Priority: Secondary Status: Chronic (7) Essential hypertension Priority: Secondary Status: Chronic - Transfer Medications Prescriptions: OxyCODONE/APAP 5/325 [Percocet 5/325 MG] 1 each PO Q8H PRN #6 tablet PRN Reason: Pain Home Medications: Oxycodone HCl/Acetaminophen [Percocet 5-325 mg Tablet] 1 tab PO Q8H PRN [History] Ergocalciferol (VITAMIN D2) [Vitamin D2] 50,000 unit PO QWEEK 02/01/17 [History] Ferrous Sulfate 325 mg PO BID 02/03/17 [History] Gabapentin [Neurontin] 300 mg PO TID 02/03/17 [History] Aspirin 81 mg PO DAILY #30 tab.chew 02/07/17 [Rx] Sertraline [Zoloft] 100 mg PO DAILY 02/11/17 [History] Atorvastatin [Lipitor] 80 mg PO HS tablet 02/13/17 [Rx] Loratadine [Claritin] 10 mg PO DAILY tablet 02/13/17 [Rx] Metoprolol XL (24 HR) Succ [Toprol Xl] 25 mg PO DAILY tab.er.24h 02/13/17 [Rx] Nitroglycerin 0.4 mg SL Q5MIN PRN #0 tab.subl 02/13/17 [Rx] Omeprazole [PriLOSEC] 20 mg PO DAILY@0630 capsule.dr 02/13/17 [Rx] OxyCODONE/APAP 5/325 [Percocet 5/325 MG] 1 each PO Q8H PRN #6 tablet 02/13/17 [ Rx] Rivaroxaban [Xarelto] 15 mg PO DAILY tablet 02/13/17 [Rx] amLODIPine [Norvasc] 10 mg PO DAILY tablet 02/13/17 [Rx] Allergies/Adverse Reactions: Allergies Erythromycin Base Allergy (Verified 02/03/17 15:53) Rash - Respiratory Orders Oxygen / L per min (Keep saturation greater than 90%) Smoking Cessation: Smoking cessation has been advised. For more information, call the [place] Tobacco Quit Line at 0-183-JMRG-NOW. - Ancillary Orders May use pressure relief devices daily prn, May consult with Dentist, Pipe Fitter Apprentice, Baseball Glove Stuffer PRN - Advance Directives Code Status: Full Code - History and Physical History/Physical reviewed & approved w/add comments: No significant change - Mobility Orders Ambulate - Rehabiliation Orders Rehab Potential: Good Rehab Orders: Evaluation for Physical Therapy, Evaluation for Occupational Therapy - Treatments Skin tear care topically daily PRN per policy, May check for fecal impaction rectally daily PRN, Fleet enema rectally every other day PRN cleansing purposes - Diet Orders No Added Salt (LALIT) CERTIFICATION: I certify that the transfer of the above named patient to an Extended Care Facility is necessary for the continuing treatment of the diagnosis listed. The above information is true and accurate reflection of patient's current condition. Confidential - Redisclosure prohibited without a patient's written consent.
[2017-02-14] MEDS ORDERED: Ipratropium/Albuterol Neb 3 ML IH PRN (06:18)
[2017-02-14] MEDS: *HR* Rivaroxaban 15 MG TABLET PO SCH (08:03)
[2017-02-14] MEDS: Aspirin 81 MG TAB.CHEW PO SCH (08:04)
[2017-02-14] MEDS: Loratadine 10 MG TABLET PO SCH (08:04)
[2017-02-14] MEDS: amLODIPine 5 MG TABLET PO SCH (08:04)
[2017-02-14] MEDS: Gabapentin 300 MG CAPSULE PO SCH (08:04)
[2017-02-14] MEDS: Metoprolol XL (24 HR) Succ 25 MG TAB.ER.24H PO SCH (08:04)
[2017-02-14 12:29] VITALS: BP 120/65
--- NOTE | 2017-02-14 16:38 | Electrocardiograph Report ---
[place] [id number] Test Date: 2017-02-11 Pat Name: Alba Ireland Department: 111 Room: 2NE16 Gender: F [place] Operator: [id number] : 1935 Requested By: Luis Pro Order Number: [id number] Reading MD: Patsy Gomes Measurements Intervals [place] Rate: 58 P: NE: 0 QRS: -16 QRSD: 77 T: 39 QT: 464 QTc: 462 Interpretive Statements ATRIAL FIBRILLATION WITH SLOW VENTRICULAR RESPONSE LOW QRS VOLTAGE IN PRECORDIAL LEADS INFERIOR MYOCARDIAL INFARCTION, PROBABLY OLD ANTEROSEPTAL MYOCARDIAL INFARCTION, PROBABLY OLD Electronically Signed On 02-14-2017 16:37:37 EDT by Patsy Gomes
== END 2017-02-14 14:15 ==
LOC: 2NENU → SUATTDRO 03:42
PROVIDERS: ADMIT Internal Medicine; ATTEND Internal Medicine

== ENCOUNTER 2017-04-06 06:23 | Inpatient (IN) ==
[2017-04-06] MEDS ORDERED: Lidocaine -MPF 4% 5 ML AMPUL ONE (06:52)
[2017-04-06] MEDS ORDERED: Lidocaine -MPF 1% 2 ML VIAL ID ONE (06:52)
[2017-04-06] MEDS ORDERED: Lidocaine -MPF 2% 2 ML VIAL ONE (06:52)
[2017-04-06] MEDS ORDERED: *HR* Phenylephrine 10 MG/ML VIAL ONE (06:52)
[2017-04-06] MEDS ORDERED: *HR* Rocuronium Bromide 50 MG/5 ML VIAL ONE (06:52)
[2017-04-06] MEDS ORDERED: Albuterol 2.5 MG/3 ML NEBULIZER IH ONE (06:52)
[2017-04-06] MEDS ORDERED: *HR* Succinylcholine 200 MG/10 ML VIAL IVP ONE (06:52)
[2017-04-06] MEDS ORDERED: *HR* Propofol 200 MG/20 ML VIAL IVP ONE (06:52)
[2017-04-06] MEDS ORDERED: CeFAZolin Pre 2,000 MG/100 ML 2,000 MG/100 ML BAG IVPB ONE (06:52)
[2017-04-06] MEDS ORDERED: *HR* Remifentanil 1 MG VIAL IVP ONE (06:53)
[2017-04-06] MEDS ORDERED: *HR* FentaNYL (PF) 100 MCG/2 ML VIAL ONE (06:53)
[2017-04-06] MEDS ORDERED: 0.9 % Sodium Chloride 1,000 ML IVC SCH (07:00)
--- NOTE | 2017-04-06 07:06 | Anesthesia Evaluation PreOp ---
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), Other (Depression) Other Medical History: Renal (CRI), Other (RA, Chronic Back Pain, Hyperparthyroid, Vit D Def, Left Lumbar radiculopathy) Anesthesia History: No Prior Anesthetic Complications, Past Anesthesia (CTR, LE athereftomy, Right Fem-Pop) : No Alcohol Use: none Drug use: none Medications and Allergies Oxycodone HCl/Acetaminophen [Percocet 5-325 mg Tablet] 1 tab PO Q8H PRN [History] Ergocalciferol (VITAMIN D2) [Vitamin D2] 50,000 unit PO QWEEK 02/01/17 [History] Ferrous Sulfate 325 mg PO BID 02/03/17 [History] Gabapentin [Neurontin] 300 mg PO TID 02/03/17 [History] Aspirin 81 mg PO DAILY #30 tab.chew 02/07/17 [Rx] Sertraline [Zoloft] 100 mg PO DAILY 02/11/17 [History] Atorvastatin [Lipitor] 80 mg PO HS tablet 02/13/17 [Rx] Nitroglycerin 0.4 mg SL Q5MIN PRN #0 tab.subl 02/13/17 [Rx] Rivaroxaban [Xarelto] 15 mg PO DAILY tablet 02/13/17 [Rx] Alendronate Sodium [Fosamax] 70 mg PO FR 04/06/17 [History] Amlodipine Besylate 2.5 mg PO DAILY 04/06/17 [History] Calcitriol [Rocaltrol] 0.25 mcg PO DAILY 04/06/17 [History] Lisinopril [Zestril] 40 mg PO DAILY 04/06/17 [History] Metoprolol XL (24 HR) Succ [Toprol Xl] 25 mg PO HS 04/06/17 [History] Omeprazole [PriLOSEC] 20 mg PO DAILY 04/06/17 [History] Allergies Erythromycin Base Allergy (Verified 03/07/17 20:28) Rash - Meds/Allergy Pre-op Review Medications Reviewed: Yes Allergies Reviewed: Yes Beta Blockers on Current Med List: Yes If Beta Blockers taken, Date/Time (Last Dose taken): 23:00 04/05/2017 Anesthesia Results - Labs Laboratory Tests 03/30/17 03/30/17 03/30/17 14:06 14:07 14:07 WBC 4.5 Hgb 10.2 L Hct 32.9 L Plt Count 266 INR 1.0 Sodium 139 Potassium 4.4 Chloride 113 H Carbon Dioxide 20 BUN 39 H Creatinine 1.58 H Echo 02/04/2017 EF-60-65% Severe pHTN Stress 02/08 EF- 70% No ischemia - Imaging EKG: image reviewed (Afib) Anesthesia Exam O2 Sat Height 1.35 m Height 1.35 m Weight 43.091 kg Weight 43.091 kg Height: 4'5'' Weight: 95# NPO (# of Hours): > 8 hrs Pain Scale: 0 Pain Scale Used: Numeric (1 - 10) - HEENT Pupil (Motor): Pupils equal, EOMI Mallampati: III Teeth: Missing, Poor dentition Oral Opening: Greater than 3 - DAY HABILITATION SPECIALIST LOC: Oriented DAY HABILITATION SPECIALIST Motor: Normal LUE, Normal LLE, Normal Face, Deficit RUE, Deficit RLE DAY HABILITATION SPECIALIST Sensory: Normal: RUE, LUE, RLE, LLE, Face - Cardiac Rhythm: Irregular Murmur: None JVD: No Carotid Bruit: No - Pulmonary Breath Sounds: bilateral Clear Respiratory Effort: Symmetrical Anesthesia Assess/Plan ASA Score: 4 Modified Hugo Scale for Level of Consciousness: Cooperative, oriented, and tranquil Anesthetic Plan: General Autologous Blood: Yes Monitoring Plan: Standard Monitors, A-Line Recovery Plan: PACU
[2017-04-06] MEDS ORDERED: Heparin 1,000 UNITS/500 mL NS 1,000 ML ONE (07:15)
--- NOTE | 2017-04-06 07:33 | History & Physical Report ---
Date of Encounter: 04/06/17 Time of Encounter: 07:28 24 Hour HP Update - Instructions Instructions: If the History and Physical is less than 30 days old and was completed prior to A.M. admission and or procedure and has NOT been updated on calendar day of procedure please complete this update prior to performing procedure. - Update Patient reports changes in Medical Condition: No Changes in examination, assessment, or condition: No Changes in Medication: No Preop tests/diagnostics Reviewed: Yes Surgery Remains Indicated: Yes Consent for Planned Operative Procedure(s) Verified: Yes - Pre-Operative Checklist Preoperative Checklist Indicated: Yes Prophylactic Antibiotic Ordered: Yes (VANCOMYCIN DUE TO RISK OF MRSA ) Home Medications Include Beta Danny: Yes Beta Danny Taken Today (Day of Surgery): Yes Beta Danny Taken Yesterday (Day Prior to Surgery): Yes Is VTE Prophylaxis Indicated?: Yes
[2017-04-06] MEDS ORDERED: NiCARdipine 2.5 MG/10 ML Syringe IVPB ONE (08:52)
[2017-04-06] MEDS ORDERED: EPHEDrine 50 MG/ML VIAL ONE (09:05)
[2017-04-06] MEDS ORDERED: Vancomycin 1,000 MG VIAL ONE (09:06)
[2017-04-06] MEDS ORDERED: Albuterol 2.5 MG/3 ML NEBULIZER IH PRN (10:15)
[2017-04-06] MEDS ORDERED: Ondansetron 4 MG/2 ML VIAL IVP PRN ×2 (10:15→13:14)
[2017-04-06] MEDS ORDERED: Neostigmine Methylsulfate 3 MG/3 ML SYRINGE ONE (10:31)
[2017-04-06] MEDS ORDERED: *HR* Morphine 10 MG/ML VIAL ONE (11:07)
--- NOTE | 2017-04-06 11:13 | Operative Note ---
Date of procedure: 04/06/17 Pre-op diagnosis: Peripheral vascular disease with rest pain Post-op diagnosis: same Procedure: 1. Right common and deep femoral endarterectomy. 2. Left deep femoral endarterectomy. 3. Femoral to Femoral artery bypass with 6mm PTFE graft. 4. Right deep femoral thrombectomy with 4 bahamian krishna embolectomy catheter. Complications: None Anesthesia: GETA Surgeon: Chris Pike Estimated blood loss (cc): 100 Specimen: Bilateral femoral plaque and right femoral thrombus Condition: stable Disposition: PACU Procedure in Detail: Indications: The patient is an 81 year old female with a long history of severe peripheral vascular disease. She has previosly undergone a right iliac artery stenst and a right femoral to popliteal artery bypass. The bypass graft was known to be occluded for many years. The patietn prevsiously reported claudication and was followed clinically. However, she presented to clinic with progressive rest pain in the right foot and worsening bilateral lowere extremity claudication. Angiography revealed a right iliac occlusion along with an occluded right common femoral, deep femoral and superficial femoral artery occlusion. She was noted to have a significant left femroal artery disease as well. She was then scheduled for revascularization to alleviate his symptoms and reduce his risk of limb loss. Procedure: The patient was identified in the preoperative area. The risks, benefits, and alternatives of the procedure were discussed. All questions were answered. The patient was taken to the operating room and placed in supine position on the operating room table. After the induction of general endotracheal anesthesia, he was cleaned and draped in normal sterile fashion. An oblique incision was made over the right groin sharply. Hemostasis was obtained with electrocautery. Through a process of blunt, sharp, and electrocautery dissection, the right external iliac artery and femoral arteries were dissected circumferentially and surrounded with vessel loops. Her proximal right femoral to popliteal artery bypass graft was also dissected circumferentially and surrounded with vessel loops. An oblique incision was then made over the left groin sharply. Hemostasis was obtained with electrocautery. Through a process of blunt, sharp, and electrocautery dissection, the left femoral vessels were dissected circumferentially and surrounded with vessel loops. A graft was tunneled between the right and left femoral incisions. The patient received 5000 units of intravenous heparin and additional heparin throughout the procedure to maintain adequate anticoagulation. A longitudinal arteriotomy was made in the left common femoral artery and extended into the deep femoral artery. Strong pulsatile flow was noted from the external iliac artery. However, minimal retrograde flow was noted from the left deep femoral artery due to extensive stenotic deep femoral artery plaque. Using a dental freer, a left deep femoral artery endarterectomy were then performed. The endpoints was inspected and no elevated flap was noted. The lumen was flushed with heparinized saline. The graft was cut to fit the arteriotomy and then sutured in place with a running 6-0 Prolene. The vessels were flushed through the graft. Heparinized saline was infused into the graft lumen. The graft was clamped with an atraumatic clamp. Flow was restored in the left femoral vessels. A longitudinal arteriotomy was then made in the right common femoral artery and then extended into the deep femoral artery. An occlusive right common and deep femoral artery plaque was encountered. Release of the veesel loop revealed no retrograde deep femoral artery flow. Using a dental freer, a right common femoral artery endarterectomy and a right deep femoral artery endarterectomy were performed. Proximal and distal endpoints were inspected and no elevated flaps were noted. Still no retrograde flow was noted from the right dep femoral artery. A 4 bahamian krishna balloon was passed distally into the deep femroal artery and inflated. Upon withdrawal, an oragnized chronic thrombus was retrieved. Significant retrograde flow was then noted. Additional passes of the balloon did not result in additional thrombus retrieval. The vessel was flushed with heparinized saline and then reoccluded. The distal end of the graft was then cut to fit the arteriotomy. The balloon was then passed proximally and was inflated. Orgnanized thrombus was retrieved, but no ategrade flow was noted. The lumen was flushed vigorously to remove any additional thrombus and then clamped. The graft was anastamosed with a running 6-0 Prolene. Prior to completing the anastamosis, the right femoral vessels were flushed through the graft anastamosis and heparin was infused into the lumen. The anastamosis was completed and flow was restored in the right lower extremity. Thrombin and gelfoam were used at the proximal anastamosis. Polyphasic signals were noted distal to the anastamoses. The wounds were irrigated with antibiotic-containing saline. Platelet rich and platelet poor plasma were infused into the wounds. Meticulous hemostasis was obtained throughout the wound with electrocautery. Wounds were reapproximated with layers of 2-0 and 3-0 Vicryl. Skin was reapproximated with 3-0 Monocryl. Sterile dressing was applied. The patient was extubated and taken to recovery room in stable condition.
[2017-04-06] MEDS: *HR* Morphine 2 MG/ML SYRINGE IVP PRN ×5 (11:26→12:07)
--- NOTE | 2017-04-06 12:17 | Anesthesia Evaluation Post Op ---
Date of Encounter: 04/06/17 Time of Encounter: 12:17 - Vital Signs Vital Signs: Vital Signs/O2 Sat, Most Current Temp Pulse Resp BP Pulse Ox 97.3 F L 94 18 149/92 100 04/06/17 12:10 04/06/17 12:10 04/06/17 12:10 04/06/17 12:04/06/17 12:10 - Lungs Lungs: Clear Ascult./Percussion - Airway Airway: Non-obstructed - Cardiovascular Regular Rate - Mental Status Mental Status: Alert & Oriented, Answers Appropriately - Pain Pain Scale: 0 Pain Scale used: Numeric (1 - 10) - Nausea Vomiting Nausea Vomiting: Not Present - Hydration Hydration: Ice chips, Roberson catheter - Discharge PostOp Status: Transfer Patient to floor
[2017-04-06] MEDS ORDERED: *HR* Labetalol 20 MG/4 ML SYRINGE IVP PRN (13:14)
[2017-04-06] MEDS ORDERED: Nitroglycerin 0.4 MG TAB.SUBL SL PRN (13:14)
[2017-04-06] MEDS ORDERED: Naloxone 0.4 MG/ML INJ IVP PRN (13:14)
[2017-04-06] MEDS ORDERED: Acetaminophen 325 MG TABLET PO PRN (13:14)
[2017-04-06] MEDS ORDERED: *HR* Morphine 2 MG/ML SYRINGE IVP PRN (13:14)
[2017-04-06] MEDS ORDERED: *HR* HYDROcodone/Acet 5/325 mg TABLET PO PRN (13:14)
[2017-04-06] MEDS ORDERED: *HR* OxyCODONE Immed Rel 5 MG TABLET PO PRN (13:14)
[2017-04-06] MEDS: *HR* Metoprolol 5 MG/5 ML VIAL IVP SCH ×2 (13:33→17:07)
[2017-04-06] MEDS ORDERED: ceFAZolin 2,000 MG in D5% in Water 100 ML IVPB SCH (15:00)
[2017-04-06] MEDS: ceFAZolin 2,000 MG in D5% in Water 100 ML IVPB SCH ×2 (15:35→23:45)
[2017-04-06] MEDS: Gabapentin 300 MG CAPSULE PO SCH ×2 (17:06→21:51)
[2017-04-06] MEDS ORDERED: *HR* Heparin 5,000 UNIT/ML VIAL SQ SCH ×2 (18:00)
[2017-04-06] MEDS: 0.9 % Sodium Chloride 1,000 ML IVC SCH (18:59)
[2017-04-07] MEDS: *HR* Metoprolol 5 MG/5 ML VIAL IVP SCH ×5 (00:22→23:45)
[2017-04-07 06:05] LABS: Basophils % 0.2 %; Hemoglobin 7.4 g/dL (11.5-15.4); Immature Granulocytes % 0.4 % (0-4); Lymphocytes # 0.9 K/mcL (0.6-4.6); Mean Corpuscular HGB Conc 30.8 g/dL (31.6-35.5); Mean Corpuscular Hemoglobin 30.2 pg (28.0-33.3); Mean Platelet Volume 10.7 fL (9.4-12.4); Monocytes # 0.5 K/mcL (0.0-1.3); Monocytes % 10.2 %; Neutrophils # 3.2 K/mcL (1.6-8.9); Platelet Count 168 K/mcL (140-400); Red Blood Count 2.45 M/mcL (3.82-4.97); Segmented Neutrophils % 70.2 %
[2017-04-07 06:17] LABS: Calcium 7.8 mg/dL (8.6-10.8); Potassium 4.8 mEq/L (3.5-4.5)
[2017-04-07] MEDS: amLODIPine 5 MG TABLET PO SCH (07:53)
[2017-04-07] MEDS: Aspirin 81 MG TAB.CHEW PO SCH (07:54)
[2017-04-07] MEDS: Lisinopril 20 MG TABLET PO SCH (07:54)
[2017-04-07] MEDS: Gabapentin 300 MG CAPSULE PO SCH ×3 (07:54→21:20)
[2017-04-07] MEDS ORDERED: 0.9 % Sodium Chloride 250 ML ONE (08:37)
--- NOTE | 2017-04-07 08:37 | Discharge Summary ---
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 Priority: Primary Status: Chronic Qualifiers: Peripheral atherosclerosis artery type: [place] artery Qualified Code(s): I70.221 - Atherosclerosis of [place] arteries of extremities with rest pain, right leg (2) Atherosclerosis of [place] arteries of extremities with intermittent claudication, left leg Priority: Secondary Status: Chronic (3) Chronic disease anemia Priority: Secondary Status: Chronic Comments: She received 1 unit of PRBCS (4) Atrial fibrillation Priority: Secondary Status: Chronic Qualifiers: Atrial fibrillation type: chronic Qualified Code(s): I48.2 - Chronic atrial fibrillation (5) Tobacco abuse Priority: Secondary Status: Chronic (6) COPD (chronic obstructive pulmonary disease) Priority: Secondary Status: Chronic Qualifiers: COPD type: emphysema Emphysema type: panlobular Qualified Code(s): J43.1 - Panlobular emphysema (7) CKD (chronic kidney disease) Priority: Secondary Status: Chronic Comments: Her creatinine is stable. She is making good urine. She received fluid overnight. She may be discharged after she voids. (8) Essential hypertension Priority: Secondary Status: Chronic Comments: She was counseled regarding atherosclerotic risk factor reduction. - Discharge Medications Prescriptions: OxyCODONE/APAP 5/325 [Percocet 5/325 MG] 1 each PO Q4HR PRN #30 tablet PRN Reason: postoperative pain Home Medications: Ergocalciferol (VITAMIN D2) [Vitamin D2] 50,000 unit PO FR 02/01/17 [History] Ferrous Sulfate 325 mg PO TID 02/03/17 [History] Gabapentin [Neurontin] 300 mg PO TID 02/03/17 [History] Aspirin 81 mg PO DAILY #30 tab.chew 02/07/17 [Rx] Sertraline [Zoloft] 100 mg PO DAILY 02/11/17 [History] Atorvastatin [Lipitor] 80 mg PO HS tablet 02/13/17 [Rx] Nitroglycerin 0.4 mg SL Q5MIN PRN #0 tab.subl 02/13/17 [Rx] Alendronate Sodium [Fosamax] 70 mg PO FR 04/06/17 [History] Amlodipine Besylate 2.5 mg PO DAILY 04/06/17 [History] Calcitriol [Rocaltrol] 0.25 mcg PO DAILY 04/06/17 [History] Lisinopril [Zestril] 40 mg PO DAILY 04/06/17 [History] Metoprolol XL (24 HR) Succ [Toprol Xl] 25 mg PO HS 04/06/17 [History] Omeprazole [PriLOSEC] 20 mg PO DAILY 04/06/17 [History] Rivaroxaban [Xarelto] 20 mg PO DAILY 04/06/17 [History] OxyCODONE/APAP 5/325 [Percocet 5/325 MG] 1 each PO Q4HR PRN #30 tablet 04/07/17 [Rx] Allergies/Adverse Reactions: Allergies Erythromycin Base Allergy (Verified 04/06/17 07:24) Rash Date of admission: 04/06/17 12:03 Primary care physician: Patsy Schultz[facility] Procedure(s) Performed: Femoral endarterectomy and FEM-FEM bypass. Discharging clinician: Chris Pike Anticipated date of discharge: 04/07/17 - Patient Status Disposition: Home, Self-Care Condition: Good Functional capacity at discharge: independent ambulation Overall status at discharge: patient is progressing back to baseline - Discharge Instructions Instructions: Oxycodone/Acetaminophen (By mouth), Aortofemoral Bypass (DC) Follow Up With: Chris Pike MD [Partnered Physician] - 05/17/17 2:20 pm Theresa Mendoza MD [Partnered Physician] - 04/13/17 2:00 pm Bolivar Melendez MD [Partnered Physician] - (follow-up with Urology next week.) Additional Instructions: May remove bandages and shower on 04/08/17. Wash wounds gently and pat to dry. Apply dry gauze to wounds daily for 7 days. No tub baths or swimming until 05/09/17. Follow-up in Urology clinic next week. Call Dr. Pike at [phone] with questions or concerns. - Diet and Activity Activity: increase activity as tolerated Diet: advance to your usual diet - Hospital Course Hospital course: Ms. Ireland is a 81 year old female with multiple medical comorbidities who presented to clinic with right lower extremity rest pain. She was admitted on and underwent a femoral endarterectomy a FEM-FEM bypass. She tolerated the procedure well. On postoperative day #1, she reported improvement of her symptoms. She received 1 unit or PRBCs for her chronic anemia. She remained hemodynamically stable. She had 2 voiding trials. She was unable to void and was discharged with a victor catheter in place. She will follow-up in Urology clinic next week for another voiding trial. She was discharged in stable condition on postoperative day #2 without complication. Time spent discussing smoking cessation with patient: 3 to 10 minutes - Time Spent with Patient Total time spent providing and/or coordinating discharge services: Exam Vital Signs, Last 4 Hours Temp Pulse Resp BP Pulse Ox 04/07/17 08:01 81 04/07/17 07:45 98.3 F 79 14 107/59 93 04/07/17 06:01 97.8 F 04/07/17 05:10 97.7 F General: Present: Conversant, No Apparent Distress HEENT: Present: Atraumatic Cardiac: Present: No Murmur Lungs: Present: Normal Breath Sounds Neuro: Present: Alert and responsive, No focal deficits noted, Motor nerves grossly intact, Sensory nerves grossly intact Abdomen: Present: Soft, Non-tender Vascular: Present: Normal capillary refill, Surgical incisions (no hematoma, incisions clean, dry and intact without erythema or drainage). Absent: Cyanosis , Edema - VTE Documentation of Mechanical Device: Intermittent pneumatic compression device
[2017-04-07] MEDS ORDERED: NON-FORMULARY MEDICATION 1 EACH EACH (Alendronate Sodium [Fosamax] 70 MG) PO SCH (11:13)
[2017-04-07] MEDS: Cholecalciferol (D-3) 1,000 UNIT TABLET PO SCH (11:37)
[2017-04-07] MEDS: 0.9 % Sodium Chloride 1,000 ML IVC SCH (15:17)
[2017-04-07] MEDS ORDERED: *HR* Rivaroxaban 15 MG TABLET PO SCH (17:00)
[2017-04-07] MEDS ORDERED: Metoprolol XL (24 HR) Succ 25 MG TAB.ER.24H PO SCH (21:00)
[2017-04-08] MEDS: 0.9 % Sodium Chloride 1,000 ML IVC SCH (03:49)
[2017-04-08] MEDS: *HR* Metoprolol 5 MG/5 ML VIAL IVP SCH (05:48)
[2017-04-08] MEDS ORDERED: 0.9 % Sodium Chloride 500 ML IVC ONE (07:20)
[2017-04-08 07:23] VITALS: BP 108/59
[2017-04-08] MEDS: amLODIPine 5 MG TABLET PO SCH (07:28)
[2017-04-08] MEDS: Aspirin 81 MG TAB.CHEW PO SCH (07:28)
[2017-04-08] MEDS: Gabapentin 300 MG CAPSULE PO SCH (07:28)
[2017-04-08] MEDS: Lisinopril 20 MG TABLET PO SCH (07:28)
[2017-04-08] MEDS: Cholecalciferol (D-3) 1,000 UNIT TABLET PO SCH (07:28)
--- NOTE | 2017-04-08 10:45 | Vascular/[facility] Progress Note ---
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 She is healing well. Her feet are warm. She was unable to urinate postoperatively after two voiding trials. A victor catheter has been placed and she will be discharged today. Dr. Melendez was contacted and he will have Urology follow-up with her in clinic next week. Qualifiers: Peripheral atherosclerosis artery type: [place] artery Qualified Code(s): I70.221 - Atherosclerosis of [place] arteries of extremities with rest pain, right leg (2) Atherosclerosis of [place] arteries of extremities with intermittent claudication, left leg Current Visit: Yes Status: Chronic (3) Chronic disease anemia Current Visit: Yes Status: Chronic The patient is hemodynamically stable. She has no evidence of ongoing blood loss. (4) Atrial fibrillation Current Visit: Yes Status: Chronic She has resumed her Xarelto. Qualifiers: Atrial fibrillation type: chronic Qualified Code(s): I48.2 - Chronic atrial fibrillation (5) Tobacco abuse Current Visit: Yes Status: Chronic She was counseled regarding smoking cessation. (6) COPD (chronic obstructive pulmonary disease) Current Visit: Yes Status: Chronic Qualifiers: COPD type: emphysema Emphysema type: panlobular Qualified Code(s): J43.1 - Panlobular emphysema (7) CKD (chronic kidney disease) Current Visit: Yes Status: Chronic She is making good urine. SHe has expected postoperative urinary retention. Qualifiers: Chronic kidney disease stage: stage 3 (moderate) Qualified Code(s): N18.3 - Chronic kidney disease, stage 3 (moderate) (8) Essential hypertension Current Visit: Yes Status: Chronic - Subjective Interval history: The patient is postoperative ay #2 after a FEMFEM bypass. She was unable to urinate yesterday. After two voiding trials she is unable to urinate today. She reports bladder pressure. She is otherwise without complaints. Vital Signs, Last 4 Hours Temp Pulse Resp BP Pulse Ox 04/08/17 07:31 83 04/08/17 07:18 98.6 F 89 16 108/59 95 - Physical Examination General: Present: Conversant, No Apparent Distress Cardiac: Present: No Murmur Lungs: Present: Normal Breath Sounds Neuro: Present: Alert and responsive, No focal deficits noted Vascular: Present: Normal capillary refill, Color/Temperature (warm), Surgical incisions (incisions clean and dry without erythema or hematoma). Absent: Cyanosis, Edema Abdomen: Present: Soft, Non-tender - VTE Documentation of Mechanical Device: Intermittent pneumatic compression device Results 04/07/17 05:48 04/07/17 05:48 Consult Discharge Plan - Plan Instructions: Oxycodone/Acetaminophen (By mouth), Aortofemoral Bypass (DC) Additional Instructions: May remove bandages and shower on 04/08/17. Wash wounds gently and pat to dry. Apply dry gauze to wounds daily for 7 days. No tub baths or swimming until 05/09/17. Call Dr. Pike at [phone] with questions or concerns. Referrals: Chris Pike MD [Partnered Physician] - 05/17/17 2:20 pm Theresa Mendoza MD [Partnered Physician] - 04/13/17 2:00 pm Prescriptions: OxyCODONE/APAP 5/325 [Percocet 5/325 MG] 1 each PO Q4HR PRN #30 tablet PRN Reason: postoperative pain
== END 2017-04-08 16:40 | disposition home or self-care (01) | DRG 271 ==
LOC: SAMDAY 06:23 → 2NNU 12:03
PROVIDERS: ADMIT Surgery; ATTEND Surgery
PROC: VASFFBG (ICD-10-PCS; 2017-04-06 07:45)